=== PATIENT | male | born 1960 | race Caucasian/White ===

== ENCOUNTER 2018-03-30 13:21 | Inpatient (IN) | payer MEDICAID, MEDICARE ==
[~2018-03-30] VITALS: Ht 180.3 cm; Wt 72.6 kg
[~2018-03-30 13:21] MED LIST: ACET500T68 PO; ACET650T40 PO; ALBU8.5H IH; AMOX-559 PO; ASP325 PO; ASP81 PO; ASPI-879 PO; AUG875 PO; AZIT-1 PO; BENZ1LOZ12 PO; BRIOD OD; CAL1L PO; CALC-18 PO; CALC-515 PO; CALC-521 PO; CAR100 PO; CARB-82 PO; CARB-83 PO; CARXR100 PO; CIT20 PO; CLI150 PO; CYC10 PO; CYCL10TA29 PO; DAR100 PO; DIV500 PO; DIV500ER PO; DIVA-1 PO; DIVA500T98 PO; DOCU-194 PO; DOCU-416 PO; DONE10TA64 PO; ENA5 PO; FLUT1DIS28 IH; FOLI-68 PO; HYDR-385 PO; HYDR-4309 PO; HYDR2TAB74 PO; IBU600 PO; IBUP600T22 PO; KET10 PO; LEV100 PO; LEV125 PO; LEVO137T22 PO; LEVO75TA73 PO; LOR1 PO; LOR5 PO; LOR5/325 PO; MEC25 PO; MECL-81 PO; MELO-150 PO; MEMA10TA19 PO; MULT-1335 PO; MULT-1379 PO; MVI IV; NAPR500T75 PO; NICO1PAT45 TD; ONDA4TAB PO; OXYC-865 PO; PANT40TA65 PO; PER PO; PHEN100 PO; PHEN100C82 PO; PIRO10CA62 PO; RISE35TA PO; SER50 PO; SERT-1 PO; SERT-173 PO; SERT-182 PO; SULI200T84 PO; TAMS0.4C25 PO; TAMS0.4C70 PO; THIA100T6; TRA50 PO; ZONI100C49 PO; [UNRECOGNIZED DRUG - CODE] PO
--- NOTE | 2018-03-30 13:30 | ER Report ---
History and Physical Time Seen By MD: 13:22 HPI/ROS CHIEF COMPLAINT: seizure HISTORY OF PRESENT ILLNESS: This is a 58 year old male. He is well known to us here in the ER. 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 Reported to have had a witnessed seizure and collapsed on the street. Had a seizure and subsequent post-ictal state. He is coming around, but still having some confusion. He states he has no pain other than a headache, which is common for him after a seizure. He is not having any focal neurologic deficits oth erwise. REVIEW OF SYSTEMS: Unable to obtain at this time. Allergies: Coded Allergies: No Known Drug Allergies (Verified , 03/30/18) Home Meds Active Scripts Divalproex Sodium (DEPAKOTE) 500 Mg Tablet.dr, 1000 MG PO BID for 30 Days, #120 TAB 1 Refill Prov:OTIS ABRAMS MD 03/31/18 Phenytoin Sodium Extended (PHENYTOIN SODIUM EXTENDED) 300 Mg Capsule, 300 MG PO QDAY for 30 Days, #30 CAPSULE 1 Refill Prov:OTIS ABRAMS MD 03/31/18 Reported Medications Levothyroxine Sodium (LEVOTHYROXINE SODIUM) 0.125 Mg Tab, 0.125 MG PO QDAY, TAB 03/31/18 Risperidone (RISPERIDONE) 0.25 Mg Tablet, 0.25 MG PO BID 03/30/18 Cholecalciferol (Vitamin D3) (VITAMIN D3) 1,000 Unit Tablet, 5000 UNIT PO QDAY, TAB 03/30/18 Pantoprazole Sodium (PANTOPRAZOLE SODIUM) 40 Mg Tablet.dr, 40 MG PO QDAY, TAB.SR 03/30/18 Escitalopram Oxalate (LEXAPRO) 20 Mg Tablet, 20 MG PO QDAY, TAB 03/30/18 Discontinued Reported Medications Levothyroxine Sodium (LEVOTHYROXINE SODIUM) 100 Mcg Tablet, 125 MCG PO QDAY, TAB 03/30/18 Albuterol Sulfate 90 Mcg/Act (PROAIR HFA 90 MCG/ACT) 8.5 Gm Hfa.aer.ad, 1-2 PUFF IH 3-4XD, INHALER 07/05/16 Nicotine (NICOTINE PATCH) 1 Each Patch.dysq, 1 EACH TD QDAY 07/05/16 Sertraline Hcl (ZOLOFT) 50 Mg Tablet, 3 TAB PO QDAY, TAB 07/05/16 Calcium Carbonate (TUMS) 300 Mg Tab.chew, 500 MG PO, TAB.CHEW 07/05/16 Multivits,Th W-Fe,Other Min (THERA-M) 1 Each Tablet, 1 EACH PO 07/05/16 Levothyroxine Sodium (SYNTHROID) 137 Mcg Tablet, 137 MCG PO QDAY 07/05/16 Phenytoin Sodium Extended (DILANTIN) 100 Mg Capsule, 200 MG PO QHS, CAPSULE 07/05/16 Divalproex Sodium (DEPAKOTE) 500 Mg Tablet.dr, 500 MG PO BID, TAB 07/05/16 Levothyroxine Sodium (SYNTHROID) 137 Mcg Tablet, 137 MCG PO QDAY 07/05/16 Phenytoin Sodium Extended (DILANTIN) 100 Mg Capsule, 200 MG PO QHS, CAPSULE 07/05/16 Divalproex Sodium (DEPAKOTE) 500 Mg Tablet.dr, 500 MG PO BID, TAB 07/05/16 Reviewed Nurses Notes: Yes Hx Smoking: No Smoking Status: Former Smoker Exposure to Second Hand Smoke?: Yes Hx Substance Use Disorder: No Hx Alcohol Use: Yes Constitutional Vital Sign - Last 24 Hours 03/30/18 03/30/18 03/30/18 03/30/18 13:22 13:25 13:30 13:35 Pulse 98 110 108 98 Resp 12 12 10 12 B/P (MAP) 104/85 104/85 (91) 110/77 (88) Pulse Ox 88 88 89 86 O2 Delivery Room Air Room Air Room Air Room Air 03/30/18 03/30/18 03/30/18 03/30/18 14:00 14:05 14:10 14:30 Pulse 86 86 Resp 14 21 B/P (MAP) 109/66 (80) 119/73 (88) Pulse Ox 89 89 O2 Delivery Room Air Room Air 03/30/18 03/30/18 03/30/18 03/30/18 14:40 15:10 15:30 15:40 Pulse 95 86 81 Resp 8 12 16 B/P (MAP) 132/114 (120) Pulse Ox 91 93 94 O2 Delivery Room Air Room Air Room Air 03/30/18 03/30/18 03/30/18 03/30/18 15:45 15:54 16:00 16:00 Pulse 81 101 Resp 21 19 B/P (MAP) 137/71 (93) 109/57 (74) Pulse Ox 92 96 O2 Delivery Room Air Oxy Mask O2 Flow Rate 10 10.0 03/30/18 03/30/18 03/30/18 03/30/18 16:05 16:15 16:20 16:30 Pulse 100 98 Resp 19 20 B/P (MAP) 108/59 (75) 108/68 (81) Pulse Ox 98 99 O2 Delivery Oxy Mask Oxy Mask O2 Flow Rate 10 10 03/30/18 03/30/18 03/30/18 03/30/18 16:35 16:40 16:45 16:55 Pulse 98 93 93 Resp 16 15 9 B/P (MAP) 109/64 (79) Pulse Ox 93 91 89 O2 Delivery Room Air Room Air Room Air 03/30/18 03/30/18 03/30/18 03/30/18 17:00 17:05 17:15 17:20 Pulse 94 95 Resp 9 23 B/P (MAP) 101/62 (75) 104/66 (79) Pulse Ox 88 87 O2 Delivery Room Air Room Air 03/30/18 03/30/18 17:25 17:30 Pulse 97 Resp 15 B/P (MAP) 106/62 (77) Pulse Ox 87 O2 Delivery Room Air Physical Exam General Appearance: The patient is initially post-ictal with confusion, but improving. Able to answer some basic questions. No acute distress. Eyes: Pupils are equal, round. Reactive to light. No pallor, injection or icterus. ENT: Mucous membranes are moist. Normal oral mucosa. Posterior oropharynx is normal. Neck: Supple and no apparent tender. Respiratory: Lungs are clear to auscultation. Cardiovascular: Regular rate and rhythm. No murmurs, gallops or rubs. Normal capillary refill. No edema. Gastrointestinal: Abdomen is soft and no apparent tenderness. Nondistended. Normal active bowel sounds. Neurological: No focal neurologic deficits noted, moving all extremities. Skin: Warm and dry. No rashes. Musculoskeletal: No tenderness noted with palpation. DIFFERENTIAL DIAGNOSIS: After history and physical exam, differential diagnosis was considered for seizure, no evidence of injury, has a headache, which is common for him after a seizure, based on what he has wanted in the past, we are waiting for him to become more alert and talk about what he would like us to do. Medical Decision Making Data Points Result Diagram: 9/2/18 1315 03/30/18 1315 Laboratory Hematology Test 03/30/18 13:15 Red Blood Count 5.50 M/uL (4.00-5.60) Mean Corpuscular Volume 87.2 fL (80.0-96.0) Mean Corpuscular Hemoglobin 29.7 pg (26.0-33.0) Mean Corpuscular Hemoglobin Concent 34.0 g/dL (32.0-36.0) Red Cell Distribution Width 18.7 % (11.5-14.5) Mean Platelet Volume 9.1 fL (7.2-11.1) Neutrophils (%) (Auto) 59.5 % (39.4-72.5) Lymphocytes (%) (Auto) 28.3 % (17.6-49.6) Monocytes (%) (Auto) 10.7 % (4.1-12.4) Eosinophils (%) (Auto) 0.8 % (0.4-6.7) Basophils (%) (Auto) 0.7 % (0.3-1.4) Nucleated RBC Relative Count (auto) 0.0 /100WBC Neutrophils # (Auto) 4.7 K/uL (2.0-7.4) Lymphocytes # (Auto) 2.2 K/uL (1.3-3.6) Monocytes # (Auto) 0.8 K/uL (0.3-1.0) Eosinophils # (Auto) 0.1 K/uL (0.0-0.5) Basophils # (Auto) 0.1 K/uL (0.0-0.1) Nucleated RBC Absolute Count (auto) 0.00 K/uL Peripheral Blood Smear No Y/N Sodium Level 142 mmol/L (137-145) Potassium Level 3.7 mmol/L (3.5-5.0) Chloride Level 103 mmol/L (98-107) Carbon Dioxide Level 19 mmol/L (22-30) Blood Urea Nitrogen 11 mg/dl (9-21) Creatinine 0.60 mg/dl (0.66-1.25) Glomerular Filtration Rate Calc > 60.0 Random Glucose 121 mg/dl (75-110) Calcium Level 9.1 mg/dl (8.4-10.2) Total Bilirubin 0.5 mg/dl (0.2-1.3) Aspartate Amino Transf (AST/SGOT) 44 U/L (0-35) Alanine Aminotransferase (ALT/SGPT) 58 U/L (0-56) Alkaline Phosphatase 74 U/L (0-126) Total Protein 7.5 g/dl (6.3-8.2) Albumin 4.6 g/dl (3.5-5.0) Phenytoin (Dilantin) Level 3.9 ug/ml Phenytoin Last Dose Date . Valproic Acid (Depakene) Level < 10.0 ug/ml Chemistry Test 03/30/18 13:15 White Blood Count 7.8 k/uL (4.5-11.0) Red Blood Count 5.50 M/uL (4.00-5.60) Hemoglobin 16.3 g/dL (14.0-18.0) Hematocrit 47.9 % (42.0-52.0) Mean Corpuscular Volume 87.2 fL (80.0-96.0) Mean Corpuscular Hemoglobin 29.7 pg (26.0-33.0) Mean Corpuscular Hemoglobin Concent 34.0 g/dL (32.0-36.0) Red Cell Distribution Width 18.7 % (11.5-14.5) Platelet Count 245 K/uL (150-450) Mean Platelet Volume 9.1 fL (7.2-11.1) Neutrophils (%) (Auto) 59.5 % (39.4-72.5) Lymphocytes (%) (Auto) 28.3 % (17.6-49.6) Monocytes (%) (Auto) 10.7 % (4.1-12.4) Eosinophils (%) (Auto) 0.8 % (0.4-6.7) Basophils (%) (Auto) 0.7 % (0.3-1.4) Nucleated RBC Relative Count (auto) 0.0 /100WBC Neutrophils # (Auto) 4.7 K/uL (2.0-7.4) Lymphocytes # (Auto) 2.2 K/uL (1.3-3.6) Monocytes # (Auto) 0.8 K/uL (0.3-1.0) Eosinophils # (Auto) 0.1 K/uL (0.0-0.5) Basophils # (Auto) 0.1 K/uL (0.0-0.1) Nucleated RBC Absolute Count (auto) 0.00 K/uL Peripheral Blood Smear No Y/N Glomerular Filtration Rate Calc > 60.0 Calcium Level 9.1 mg/dl (8.4-10.2) Total Bilirubin 0.5 mg/dl (0.2-1.3) Aspartate Amino Transf (AST/SGOT) 44 U/L (0-35) Alanine Aminotransferase (ALT/SGPT) 58 U/L (0-56) Alkaline Phosphatase 74 U/L (0-126) Total Protein 7.5 g/dl (6.3-8.2) Albumin 4.6 g/dl (3.5-5.0) Phenytoin (Dilantin) Level 3.9 ug/ml Phenytoin Last Dose Date . Valproic Acid (Depakene) Level < 10.0 ug/ml Toxicology Test 03/30/18 13:15 Phenytoin (Dilantin) Level 3.9 ug/ml Phenytoin Last Dose Date . Valproic Acid (Depakene) Level < 10.0 ug/ml EKG/Imaging Imaging EXAMINATION: Head CT without intravenous contrast HISTORY: Headache, seizure. COMPARISON: 06/25/2016. TECHNIQUE: Contiguous axial images were obtained from the skull base to the vertex without intravenous contrast. Sagittal and coronal reformatted images are also submitted. One of the following dose optimization techniques was utilized in the performance of this exam: Automated exposure control; adjustment of the mA and/or kV according to the patient's size; or use of an iterative reconstruction technique. Specific details can be referenced in the facility's radiology CT exam operational policy. FINDINGS: Brain and intracranial structures: Mild cerebral volume loss with corresponding sulcal prominence. Cerebral atrophy is more prominent symmetrically within the medial occipital lobes. Ventricles are normal in size. The basal cisterns are patent. Silverio-white matter differentiation is maintained. No midline shift, acute hemorrhage, acute infarct, or mass. Vessels: Mild calcification of the carotid siphons. Calvarium / scalp: Negative. Skull base / visualized face: Mild leftward deviation of the nasal septum. Visualized sinuses / orbits: Trace mucosal thickening in the right maxillary sinus. IMPRESSION: No CT evidence of acute intracranial pathology. Mild generalized cerebral atrophy with more prominent focal atrophy in the medial occipital lobes, similar to previous examinations. Report Dictated By: Simon Roper MD at 03/30/2018 3:14 PM ED Course/Re-evaluation Clinical Indication for ER IV: IV Access ED Course The patient regained his level of alertness. He is only complaining of a headache. We talked about getting him something for pain and he is okay with d oing a CT scan of the head. We will also obtain his depakote and dilantin levels as he is unsure if he has missed any doses recently. We will go ahead and give him a dose of each now as well. Lortab 5/[address] was [address] scan done and shortly after returning, he had another seizure. Post-ictal state again. His Head CT was negative. His Phenytoin level was negative, and Depakote level was a little on the low side. He took an oral dose of Dilantin 300mg and Depakote 1000mg prior to the second seizure. Upon awakening from his post-ictal state from last seizure. Still with headache and very tired. Discussed what he would like to do. Offered hospitalization, as I know that he will sometimes refuse and want to go home, but he would like to stay in the hospital. I suspect medication noncompliance to be the problems. We are still waiting to collect a urine sample. Discussed the case with Dr. Childs who accepted the patient for admission. Decision to Disposition Date: Mar 30, 2018 Decision to Disposition Time: 17:27 Depart Departure Latest Vital Signs Vital Signs Date Time Temp Pulse Resp B/P (MAP) Pulse Ox O2 Delivery O2 Flow Rate FiO2 03/30/18 17:30 106/62 (77) 03/30/18 17:25 97 15 87 Room Air 03/30/18 16:20 10 Impression: Primary Impression: Seizure disorder Additional Impression: Seizure secondary to subtherapeutic anticonvulsant medication Condition: Condition Unchanged Disposition: Admitted from ER New Scripts Divalproex Sodium (DEPAKOTE) 500 Mg Tablet. 1000 MG PO BID for 30 Days, #120 TAB 1 Refill Prov: OTIS ABRAMS MD 03/31/18 Phenytoin Sodium Extended (PHENYTOIN SODIUM EXTENDED) 300 Mg Capsule 300 MG PO QDAY for 30 Days, #30 CAPSULE 1 Refill Prov: OTIS ABRAMS MD 03/31/18 Problem Qualifiers CEDRIC CERVANTES MD Mar 30, 2018 13:30
[2018-03-30] MEDS ORDERED: DIVALPROEX SOD DR 500 MG TAB PO ONE (14:35)
[2018-03-30] MEDS ORDERED: APAP/HYDROCODONE 325/5 TAB PO ONE (14:40)
[2018-03-30] MEDS ORDERED: RISP0.2548 PO (14:42)
[2018-03-30] MEDS ORDERED: ESCI20TA38 PO (14:42)
[2018-03-30] MEDS ORDERED: PANT40TA65 PO (14:42)
[2018-03-30] MEDS ORDERED: [UNRECOGNIZED DRUG - CODE] PO (14:42)
[2018-03-30] MEDS ORDERED: CHOL10005 PO (14:42)
[2018-03-30] MEDS ORDERED: DIVA500T98 PO (14:42)
[2018-03-30] MEDS ORDERED: LEVO-3 PO (14:42)
[2018-03-30] MEDS ORDERED: PHENYTOIN ER 100 MG CAPER PO ONE (15:15)
[2018-03-30] MEDS ORDERED: DIVALPROEX SOD ER 500 MG TABSR PO ONE (15:25)
--- NOTE | 2018-03-30 15:35 | RADIOLOGY IMAGING REPORT ---
[place] [facility] [place] Tmii Colvin : 1960 MR: [id number] V: [id number] EXAM DATE: ORDERING PHYSICIAN: CEDRIC CERVANTES TECHNOLOGIST: Location: [facility] Patient: Timi Colvin : 1960 Visit/Account:[id number] Date of Sevice: 03/30/2018 EXAMINATION: Head CT without intravenous contrast HISTORY: Headache, seizure. COMPARISON: 06/25/2016. TECHNIQUE: Contiguous axial images were obtained from the skull base to the vertex without intraven ous contrast. Sagittal and coronal reformatted images are also submitted. One of the following dose optimization techniques was utilized in the performance of this exam: Autom ated exposure control; adjustment of the mA and/or kV according to the patient's size; or use of an i terative reconstruction technique. Specific details can be referenced in the facility's radiology C T exam operational policy. FINDINGS: Brain and intracranial structures: Mild cerebral volume loss with corresponding sulcal prominence. C erebral atrophy is more prominent symmetrically within the medial occipital lobes. Ventricles are nor mal in size. The basal cisterns are patent. Silverio-white matter differentiation is maintained. No midline shift, acute hemorrhage, acute infarct, or mass. Vessels: Mild calcification of the carotid siphons. Calvarium / scalp: Negative. Skull base / visualized face: Mild leftward deviation of the nasal septum. Visualized sinuses / orbits: Trace mucosal thickening in the right maxillary sinus. IMPRESSION: No CT evidence of acute intracranial pathology. Mild generalized cerebral atrophy with more prominent focal atrophy in the medial occipital lobes, si milar to previous examinations. Report Dictated By: Simon Roper MD at 03/30/2018 3:14 PM Report E-Signed By: Simon Roper MD at 03/30/2018 3:31 PM [id number]
[2018-03-30 16:11] LABS: PLATELET COUNT, AUTOMATED 245 K/uL (150-450)
[2018-03-30 18:23] VITALS: BP 114/77
[2018-03-30] MEDS ORDERED: INFLUENZA VIRUS VAC 0.5 ML SYR IM ONLY ONE (18:55)
[2018-03-30] MEDS ORDERED: FLUSH 10 ML SYR IVP PRN (18:55)
--- NOTE | 2018-03-30 19:24 | History & Physical ---
History of Present Illness Chief Complaint Seizure History of Present Illness 58M with PMHx of seizure disorder. Presented to [facility] ER after witnessed seizure on [address] Postictal on arrival and had another approximately 1 minute seizure in ER. Lab shows low antiepileptic levels. Patient sleepy on admission, reports he has Rx at home and "may have missed one dose this am." CT scan was performed in ER and was negative for any acute process. History Problems: (1) Anxiety Status: Chronic (2) Seizure disorder Status: Chronic (3) Melanoma Status: Chronic Home Meds Reported Medications Risperidone (RISPERIDONE) 0.25 Mg Tablet, 0.25 MG PO BID 03/30/18 Cholecalciferol (Vitamin D3) (VITAMIN D3) 1,000 Unit Tablet, 5000 UNIT PO QDAY, TAB 03/30/18 Pantoprazole Sodium (PANTOPRAZOLE SODIUM) 40 Mg Tablet.dr, 40 MG PO QDAY, TAB.SR 03/30/18 Escitalopram Oxalate (LEXAPRO) 20 Mg Tablet, 20 MG PO QDAY, TAB 03/30/18 Divalproex Sodium (DEPAKOTE) 500 Mg Tablet.dr, 1000 MG PO BID, TAB 03/30/18 Phenytoin Sodium Extended (PHENYTOIN SODIUM EXTENDED) 300 Mg Capsule, 300 MG PO QDAY, CAPSULE 03/30/18 Levothyroxine Sodium (LEVOTHYROXINE SODIUM) 100 Mcg Tablet, 125 MCG PO QDAY, TAB 03/30/18 Discontinued Reported Medications Albuterol Sulfate 90 Mcg/Act (PROAIR HFA 90 MCG/ACT) 8.5 Gm Hfa.aer.ad, 1-2 PUFF IH 3-4XD, INHALER 07/05/16 Nicotine (NICOTINE PATCH) 1 Each Patch.dysq, 1 EACH TD QDAY 07/05/16 Sertraline Hcl (ZOLOFT) 50 Mg Tablet, 3 TAB PO QDAY, TAB 07/05/16 Calcium Carbonate (TUMS) 300 Mg Tab.chew, 500 MG PO, TAB.CHEW 07/05/16 Multivits, W-,Other Min (THERA-M) 1 Each Tablet, 1 EACH PO 07/05/16 Levothyroxine Sodium (SYNTHROID) 137 Mcg Tablet, 137 MCG PO QDAY 07/05/16 Phenytoin Sodium Extended (DILANTIN) 100 Mg Capsule, 200 MG PO QHS, CAPSULE 07/05/16 Divalproex Sodium (DEPAKOTE) 500 Mg Tablet.dr, 500 MG PO BID, TAB 07/05/16 Levothyroxine Sodium (SYNTHROID) 137 Mcg Tablet, 137 MCG PO QDAY 07/05/16 Phenytoin Sodium Extended (DILANTIN) 100 Mg Capsule, 200 MG PO QHS, CAPSULE 07/05/16 Divalproex Sodium (DEPAKOTE) 500 Mg Tablet.dr, 500 MG PO BID, TAB 07/05/16 Allergies: Coded Allergies: No Known Drug Allergies (Verified , 03/30/18) Patient History: FH: alcohol abuse MOTHER, Hx Smoking: No Smoking Status: Former Smoker Exposure to Second Hand Smoke?: Yes Caffeine Intake: Coffee Caffeine/Cups Per Day: 3 Hx Alcohol Use: Yes Hx Substance Use Disorder: No Social Drug Use: Never Review of Systems All Systems Reviewed/Normal: Yes, Except as Noted Constitutional: No Fever, No Chills Neurological: Confusion Eyes: No Vision Change, No Loss of Vision Exam Vital Signs Vital Signs Date Time Temp Pulse Resp B/P (MAP) Pulse Ox O2 Delivery O2 Flow Rate FiO2 03/30/18 18:23 98.5 89 16 114/77 (89) 89 Room Air 03/30/18 16:20 10 General Appearance: Alert, Awake, No Acute Distress (sleepy) Neuro: No Gross deficits Eyes: PERRLA ENT: Normal Neck: No Masses Cardiovascular: Normal Rhythm & Peripheral Pulses Respiratory: No Respiratory Distress GI: Abd Soft and Non-Tender Musculoskeletal: No Weakness/Pain Extremities: Soft and Non Tender Integumentary: Skin Intact without Lesion / Mass Medical Decision Making Data Points Result Diagram: 03/30/18 1315 03/30/18 1315 Assessment and Plan Problems: (1) Seizure secondary to subtherapeutic anticonvulsant medication Status: Acute Assessment & Plan: Patient did have witnessed seizure, short duration. Given IV phenytoin and Depakote in ER. Resume home antiepileptics, seizure precautions. (2) Seizure disorder Status: Acute Assessment & Plan: Diagnosed previously with seizure disorder. Provide educ ation on importance of regimen adherence. (3) Depression Status: Acute Assessment & Plan: He is on chronic antidepressant treatment. Resumed home regimen. Venous Thromboembolism Antithrombotics Is Pt On Any Antithrombotics?: No (early ambulation) Exam Sepsis Risk: No Definite Risk NGUYEN CLAIRE CHATTERJEE DO Mar 30, 2018 19:24
[2018-03-30 20:07] VITALS: BP 111/69
[2018-03-30] MEDS: DIVALPROEX SOD DR 500 MG TAB PO SCH (20:33)
[2018-03-30] MEDS: risperiDONE 0.25 MG TAB PO SCH (20:33)
[2018-03-30] MEDS: ACETAMINOPHEN 325 MG TAB PO PRN (20:33)
[2018-03-30 22:56] VITALS: BP 108/68
[2018-03-31 03:51] VITALS: BP 126/73
[2018-03-31] MEDS ORDERED: LEVOTHYROXINE SOD 0.1 MG TAB PO SCH (06:00)
[2018-03-31] MEDS ORDERED: CHOLECALCIFEROL 1000 UNIT TAB PO SCH (09:00)
[2018-03-31] MEDS ORDERED: PHENYTOIN ER 100 MG CAPER PO SCH (09:00)
[2018-03-31] MEDS ORDERED: PANTOPRAZOLE SOD 40 MG TABEC PO SCH (09:00)
[2018-03-31] MEDS ORDERED: ESCITALOPRAM OXALATE 10 MG TAB PO SCH (09:00)
[2018-03-31] MEDS ORDERED: DIVA500T98 PO (09:26)
[2018-03-31] MEDS ORDERED: [UNRECOGNIZED DRUG - CODE] PO (09:26)
--- NOTE | 2018-03-31 09:32 | Hospitalist Depart ---
Discharge Summary Reason for Hosp/Final Diag: (1) Seizure secondary to subtherapeutic anticonvulsant medication Status: Acute Hospital Course & Plan: Patient did have witnessed seizure of short duration. His medication levels were subtherapeutic. He was given IV phenytoin and Depakote in ER. We did resume his usual home regimen of Depakote 1000mg PO BID and Dilantin 300mh PO qHS. He did not have any recurrent seizure activity during his stay. He will follow up with his primary care provider in next 1-2 weeks. (2) Seizure disorder Status: Acute Hospital Course & Plan: Diagnosed previously with seizure disorder. We discussed the importance of regimen adherence. (3) Depression Status: Acute Hospital Course & Plan: He is on chronic antidepressant treatment with Lexapro. Departure Weight (Pounds): 160 Weight (Ounces): 0.0 Result Diagram: 03/30/18 1315 03/30/18 1315 Item Value Date Time Albumin 4.6 g/dl 03/30/18 1315 Total Protein 7.5 g/dl 03/30/18 1315 Alkaline Phosphatase 74 U/L 03/30/18 1315 Alanine Aminotransferase (ALT/SGPT) 58 U/L H 03/30/18 1315 Aspartate Amino Transf (AST/SGOT) 44 U/L H 03/30/18 1315 Total Bilirubin 0.5 mg/dl 03/30/18 1315 Calcium Level 9.1 mg/dl 03/30/18 1315 Random Glucose 121 mg/dl H 03/30/18 1315 Valproic Acid (Depakene) Level < 10.0 ug/ml 03/30/18 1315 Phenytoin (Dilantin) Level 3.9 ug/ml 03/30/18 1315 Urine Mucus Moderate /HPF H 03/31/18 0400 Urine Bacteria Negative /HPF 03/31/18 0400 Urine Transitional Epithelial Cells Few /LPF 03/31/18 0400 Urine Squamous Epithelial Cells Few /LPF 03/31/18 0400 Urine WBC 2 /HPF 03/31/18 0400 Urine RBC <1 /HPF 03/31/18 0400 Urine Leukocyte Esterase Negative 03/31/18 0400 Urine Urobilinogen Negative mg/dL 03/31/18 0400 Urine Nitrite Negative 03/31/18 0400 Urine Bilirubin Negative 03/31/18 0400 Urine Blood Negative 03/31/18399 Urine Ketones 20 mg/dL H 03/31/18 040 Urine Glucose (UA) Negative mg/dL 03/31/18399 Urine Protein 30 mg/dL 03/31/18399 Urine Specific [place] 1.025 03/31/18399 Urine pH 6.0 pH 03/31/18 040 Urine Clarity Clear 03/31/18399 Urine Color Yellow 03/31/18399 Imaging PATIENT NAME: iTmi Colvin : 1960 MR: [id number] V: [id number] EXAM DATE: ORDERING PHYSICIAN: CEDRIC CERVANTES TECHNOLOGIST: [place] [facility] [place] : 1960 Visit/Account:[id number] Date of Sevice: 03/30/2018 EXAMINATION: Head CT without intravenous contrast HISTORY: Headache, seizure. COMPARISON: 06/25/2016. TECHNIQUE: Contiguous axial images were obtained from the skull base to the vertex without intravenous contrast. Sagittal and coronal reformatted images are also submitted. One of the following dose optimization techniques was utilized in the performance of this exam: Automated exposure control; adjustment of the mA and/or kV according to the patient's size; or use of an iterative reconstruction technique. Specific details can be referenced in the facility's radiology CT exam operational policy. FINDINGS: Brain and intracranial structures: Mild cerebral volume loss with corresponding sulcal prominence. Cerebral atrophy is more prominent symmetrically within the medial occipital lobes. Ventricles are normal in size. The basal cisterns are patent. Silverio-white matter differentiation is maintained. No midline shift, acute hemorrhage, acute infarct, or mass. Vessels: Mild calcification of the carotid siphons. Calvarium / scalp: Negative. Skull base / visualized face: Mild leftward deviation of the nasal septum. Visualized sinuses / orbits: Trace mucosal thickening in the right maxillary sinus. IMPRESSION: No CT evidence of acute intracranial pathology. Mild generalized cerebral atrophy with more prominent focal atrophy in the medial occipital lobes, similar to previous examinations. Report Dictated By: Simon Roper MD at 03/30/2018 3:14 PM Report E-Signed By: Simon Roper MD at 03/30/2018 3:31 PM [id number] Condition: Improved Discharge: Home, Self Care Follow-Up Labs: Other (Recheck drug levels in 1-2 weeks.) Time Spent: > 30 min Discharge Instructions Home Meds Active Scripts Divalproex Sodium (DEPAKOTE) 500 Mg Tablet.dr, 1000 MG PO BID for 30 Days, #120 TAB 1 Refill Prov:OTIS ABRAMS MD 03/31/18 Phenytoin Sodium Extended (PHENYTOIN SODIUM EXTENDED) 300 Mg Capsule, 300 MG PO QDAY for 30 Days, #30 CAPSULE 1 Refill Prov:OTIS ABRAMS MD 03/31/18 Reported Medications Risperidone (RISPERIDONE) 0.25 Mg Tablet, 0.25 MG PO BID 03/30/18 Cholecalciferol (Vitamin D3) (VITAMIN D3) 1,000 Unit Tablet, 5000 UNIT PO QDAY, TAB 03/30/18 Pantoprazole Sodium (PANTOPRAZOLE SODIUM) 40 Mg Tablet.dr, 40 MG PO QDAY, TAB.SR 03/30/18 Escitalopram Oxalate (LEXAPRO) 20 Mg Tablet, 20 MG PO QDAY, TAB 03/30/18 Levothyroxine Sodium (LEVOTHYROXINE SODIUM) 100 Mcg Tablet, 125 MCG PO QDAY, TAB 03/30/18 Discontinued Reported Medications Albuterol Sulfate 90 Mcg/Act (PROAIR HFA 90 MCG/ACT) 8.5 Gm Hfa.aer.ad, 1-2 PUFF IH 3-4XD, INHALER 07/05/16 Nicotine (NICOTINE PATCH) 1 Each Patch.dysq, 1 EACH TD QDAY 07/05/16 Sertraline Hcl (ZOLOFT) 50 Mg Tablet, 3 TAB PO QDAY, TAB 07/05/16 Calcium Carbonate (TUMS) 300 Mg Tab.chew, 500 MG PO, TAB.CHEW 07/05/16 Multivits,Th W-Fe,Other Min (THERA-M) 1 Each Tablet, 1 EACH PO 07/05/16 Levothyroxine Sodium (SYNTHROID) 137 Mcg Tablet, 137 MCG PO QDAY 07/05/16 Phenytoin Sodium Extended (DILANTIN) 100 Mg Capsule, 200 MG PO QHS, CAPSULE 07/05/16 Divalproex Sodium (DEPAKOTE) 500 Mg Tablet.dr, 500 MG PO BID, TAB 07/05/16 Levothyroxine Sodium (SYNTHROID) 137 Mcg Tablet, 137 MCG PO QDAY 07/05/16 Phenytoin Sodium Extended (DILANTIN) 100 Mg Capsule, 200 MG PO QHS, CAPSULE 07/05/16 Divalproex Sodium (DEPAKOTE) 500 Mg Tablet.dr, 500 MG PO BID, TAB 07/05/16 Follow up Referrals: Internal Medicine @ [facility] Diet: Regular Activity: As Tolerated, No Exertion Special Instructions: No driving. Follow up with Primary Care Provider in next 1-2 weeks or sooner if any problems. Copies to: ; Venous Thromboembolism Antithrombotics Is Pt On Any Antithrombotics?: No (early ambulation) OTIS ABRAMS MD Mar 31, 2018 09:32
[2018-03-31 09:40] VITALS: BP 116/69
[2018-03-31] MEDS: risperiDONE 0.25 MG TAB PO SCH (09:44)
[2018-03-31] MEDS: DIVALPROEX SOD DR 500 MG TAB PO SCH (09:45)
[2018-03-31] MEDS ORDERED: LEV125 PO (09:51)
[2018-03-31] MEDS: ACETAMINOPHEN 325 MG TAB PO PRN (09:54)
[2018-03-31 11:41] VITALS: Ht 180.3 cm; Wt 72.6 kg
== END 2018-03-31 11:24 | disposition home or self-care (01) | DRG 101 ==
LOC: ER 13:30 → MED 17:38
PROVIDERS: ADMIT Internal Medicine; ATTEND Internal Medicine
DX: G40.909 Epilepsy, unspecified, not intractable, without status epilepticus (principal); T42.6X6A Underdosing of other antiepileptic and sedative-hypnotic drugs, initial encounter; F32.9 Major depressive disorder, single episode, unspecified; Z91.128 Patient's intentional underdosing of medication regimen for other reason; Z87.891 Personal history of nicotine dependence; Z87.820 Personal history of traumatic brain injury; Z85.850 Personal history of malignant neoplasm of thyroid; Z85.820 Personal history of malignant melanoma of skin
CPT/HCPCS: 70450; 80164; 80185; 81001; 82040; 82247; 82310; 82374; 82435; 82565; 82947; 84075; 84132; 84155; 84295; 84450; 84460; 84520; 85025; 99284

== ENCOUNTER 2018-04-02 21:07 | Inpatient (IN) | payer OTHER, MEDICARE ==
[2018-03-31 11:41] VITALS: Ht 180.3 cm; Wt 65.8 kg
[~2018-04-02] VITALS: Ht 180.3 cm; Wt 65.8 kg
[2018-04-02] MEDS ORDERED: NS(*) 0.9% 1000 ML BAG 1,000 ML IV ONE (21:16)
[2018-04-02] MEDS ORDERED: DIPHTH/TETANUS/ACEL. PERTUSSIS IM ONE (21:20)
[2018-04-02] MEDS ORDERED: fentaNYL CITR 100 MCG/2 ML AMP IVP ONE (21:20)
[2018-04-02] MEDS ORDERED: ONDANSETRON 4 MG/2 ML VIAL IVP ONE (21:20)
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
[2018-04-02] MEDS ORDERED: IOPAMIDOL 76% 75 ML INFUS BTL 75 ML ONE (21:37)
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
[2018-04-02 21:52] LABS: PLATELET COUNT, AUTOMATED 217 K/uL (150-450)
[2018-04-02 22:02] LABS: INR 1.09
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
[2018-04-03] MEDS ORDERED: ONDANSETRON 4 MG/2 ML VIAL IVP PRN (00:20)
[2018-04-03] MEDS ORDERED: NALOXONE HCL 0.4 MG/ML VIAL IVP PRN (00:20)
[2018-04-03] MEDS ORDERED: ACETAMINOPHEN 325 MG TAB PO PRN (00:20)
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
[2018-04-03 01:03] VITALS: BP 94/59
[2018-04-03] MEDS: KCL/D1/2NS 20 MEQ 1000 ML 1,000 ML IV PRN ×3 (01:38→23:22)
[2018-04-03] MEDS: APAP/HYDROCODONE 325/5 TAB PO PRN ×3 (01:49→21:31)
[2018-04-03] MEDS: BACITRACIN OINT 0.9 GM PKT TP SCH ×3 (02:06→21:31)
[2018-04-03 05:14] VITALS: BP 89/47
[2018-04-03 05:21] VITALS: BP 91/57
--- NOTE | 2018-04-03 06:57 | RADIOLOGY IMAGING REPORT ---
FACILITY: [facility] - [place] PATIENT NAME: Timi Colvin : 1960 MR: [id number] V: [id number] EXAM DATE: ORDERING PHYSICIAN: DANE DUARTE TECHNOLOGIST: Location: [facility] [place] Patient: Timi Colvin : 1960 Visit/Account:[id number] Date of Sevice: 04/03/2018 AP CHEST 04/03/2018 5:00 AM. INDICATION: follow rib fractures COMPARISON: Yesterday. FINDINGS: Unchanged vagal nerve stimulator. Thyroidectomy clips. Lungs are well-expanded. Chronic reticular opacities are unchanged. No new focal consolidation, ple ural effusion or pneumothorax. Heart size is unchanged. Rib fractures better demonstrated on CT. IMPRESSION: No significant change. Report Dictated By: Lg Nunez MD at 04/03/2018 6:52 AM Report E-Signed By: Lg Nunez MD at 04/03/2018 6:54 AM WSN:[id number]
[2018-04-03 07:47] VITALS: BP 92/75
[2018-04-03] MEDS: DOCUSATE SODIUM 100 MG CAP PO SCH ×2 (08:49→21:31)
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
[2018-04-03 19:57] VITALS: BP 96/53
[2018-04-03] MEDS: DIVALPROEX SOD DR 500 MG TAB PO SCH (21:31)
[2018-04-03] MEDS: risperiDONE 0.25 MG TAB PO SCH (21:31)
[2018-04-03] MEDS ORDERED: NICOTINE 14 MG/24 HR PATCH TD SCH (22:30)
[2018-04-03 23:33] VITALS: BP 93/58
[2018-04-04] MEDS: APAP/HYDROCODONE 325/5 TAB PO PRN ×6 (02:01→23:50)
[2018-04-04 03:30] VITALS: BP 100/57
[2018-04-04 05:04] LABS: INR 1.11; PLATELET COUNT, AUTOMATED 153 K/uL (150-450)
[2018-04-04] MEDS: LEVOTHYROXINE SOD 0.125 MG TAB PO SCH (06:08)
[2018-04-04 07:21] VITALS: BP 88/48
--- NOTE | 2018-04-04 07:50 | RADIOLOGY IMAGING REPORT ---
FACILITY: [facility] PATIENT NAME: Timi Colvin : 1960 MR: [id number] V: [id number] EXAM DATE: ORDERING PHYSICIAN: DANE DUARTE TECHNOLOGIST: Location: [facility] [place] Patient: Timi Colvin : 1960 Visit/Account:[id number] Date of Sevice: 04/04/2018 Technique: CHEST SINGLE AP HISTORY: follow rib fractures Comparison studies: Chest radiograph 04/03/2018 FINDINGS: No acute airspace consolidation. No pneumothorax. Scattered interstitial and reticular lung markings are again noted and are not significantly changed. These are most conspicuous within the le ft lung base and right midlung. The cardiomediastinal silhouette is unchanged. Rib fractures are more conspicuous on CT. IMPRESSION: 1. No acute cardiopulmonary process with no significant interval change. Report Dictated By: Angel Ruggiero DO at 04/04/2018 7:43 AM Report E-Signed By: Angel Ruggiero DO at 04/04/2018 7:46 AM WSN:[id number]
[2018-04-04] MEDS: DOCUSATE SODIUM 100 MG CAP PO SCH ×2 (09:00→19:58)
[2018-04-04] MEDS: risperiDONE 0.25 MG TAB PO SCH ×2 (09:00→19:58)
[2018-04-04] MEDS: BACITRACIN OINT 0.9 GM PKT TP SCH ×2 (09:00→19:59)
[2018-04-04] MEDS ORDERED: PATCH REMOVAL 1 EA TP SCH (09:00)
[2018-04-04] MEDS: PHENYTOIN ER 100 MG CAPER PO SCH (09:00)
[2018-04-04] MEDS: DIVALPROEX SOD DR 500 MG TAB PO SCH ×2 (09:01→19:59)
[2018-04-04] MEDS: ENOXAPARIN 40 MG/0.4ML SYR SC SCH (09:01)
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
[2018-04-04 15:39] VITALS: BP 118/43
[2018-04-04 19:32] VITALS: BP 93/50
[2018-04-04] MEDS: NICOTINE 14 MG/24 HR PATCH TD SCH (19:59)
[2018-04-04] MEDS: PATCH REMOVAL 1 EA TP SCH (19:59)
[2018-04-04 23:52] VITALS: BP 97/55
[2018-04-05 04:53] VITALS: BP 100/46
[2018-04-05] MEDS: APAP/HYDROCODONE 325/5 TAB PO PRN ×4 (04:53→18:37)
[2018-04-05 05:31] LABS: INR 1.3
--- NOTE | 2018-04-05 05:31 | RADIOLOGY IMAGING REPORT ---
FACILITY: [facility] - [place] PATIENT NAME: Timi Colvin : 1960 MR: [id number] V: [id number] EXAM DATE: ORDERING PHYSICIAN: DANE DUARTE TECHNOLOGIST: Location: [facility] Patient: Timi Colvin : 1960 Visit/Account:[id number] Date of Sevice: 04/05/2018 CHEST SINGLE AP 04/05/2018 05:00 hours. HISTORY: Follow-up rib fracture. COMPARISON: 04/04/2018 and studies dating to 07/03/2009. TECHNIQUE: Portable AP view of the chest. FINDINGS: Tubes/lines/hardware: There are external chest leads. There is a battery pack at the left lateral upp er chest and lead terminates cephalad off the x-ray. There are surgical clips at the base of the neck . Pulmonary: Lung volumes are lower. Slightly more confluent perihilar opacities, likely due to lower l glen volumes. There is left basilar opacity that has progressed. No pneumothorax. Cardiomediastinal: Cardiac and mediastinal silhouettes are within normal limits. Bones/soft tissues: No acute osseous abnormality. Rib fractures are not well seen. The visible abdome n is normal. IMPRESSION: 1. More confluent perihilar opacities, likely due to lower lung volumes and may be atelectasis. Pneum onia is felt less likely. 2. Consolidation at the left base may be atelectasis or infiltrate. 3. No pneumothorax. Report Dictated By: Agatha Yanez at 04/05/2018 5:24 AM Report E-Signed By: Agatha Yanez at 04/05/2018 5:28 AM WSN:[id number]
[2018-04-05] MEDS: LEVOTHYROXINE SOD 0.125 MG TAB PO SCH (06:07)
[2018-04-05 09:28] VITALS: BP 115/66
[2018-04-05] MEDS: risperiDONE 0.25 MG TAB PO SCH ×2 (09:31→20:17)
[2018-04-05] MEDS: PHENYTOIN ER 100 MG CAPER PO SCH (09:31)
[2018-04-05] MEDS: DIVALPROEX SOD DR 500 MG TAB PO SCH ×2 (09:31→20:18)
[2018-04-05] MEDS: ENOXAPARIN 40 MG/0.4ML SYR SC SCH (09:32)
[2018-04-05] MEDS: DOCUSATE SODIUM 100 MG CAP PO SCH ×2 (09:32→20:18)
[2018-04-05] MEDS: BACITRACIN OINT 0.9 GM PKT TP SCH ×2 (09:32→20:18)
[2018-04-05 11:35] VITALS: BP 108/65
[2018-04-05 14:42] VITALS: BP 103/59
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
[2018-04-05] MEDS: ceFAZolin 1 GM VIAL IVP SCH (18:36)
[2018-04-05] MEDS: PATCH REMOVAL 1 EA TP SCH (20:18)
[2018-04-05] MEDS: NICOTINE 14 MG/24 HR PATCH TD SCH (20:18)
[2018-04-05 20:20] VITALS: BP 92/52
[2018-04-06] VITALS (16 sets, daily range): BP systolic 101–132; BP diastolic 41–64
[2018-04-06] MEDS: APAP/HYDROCODONE 325/5 TAB PO PRN ×4 (00:15→17:33)
[2018-04-06] MEDS: ceFAZolin 1 GM VIAL IVP SCH ×4 (00:15→10:43)
[2018-04-06] MEDS: LEVOTHYROXINE SOD 0.125 MG TAB PO SCH (05:01)
[2018-04-06 06:38] LABS: INR 1.76
--- NOTE | 2018-04-06 06:39 | RADIOLOGY IMAGING REPORT ---
FACILITY: [facility] - [place] PATIENT NAME: Timi Colvin : 1960 MR: [id number] V: [id number] EXAM DATE: ORDERING PHYSICIAN: DANE DUARTE TECHNOLOGIST: Location: [facility] [place] Patient: Timi Colvin : 1960 Visit/Account:[id number] Date of Sevice: 04/06/2018 Portable chest: Indication: Injury follow-up. Technique: A single frontal film was obtained. Comparison: 04/05/2018 and 04/04/2018 Skeletal and soft tissue structures: No focal deformity is clearly identified. Heart and mediastinum: Within normal limits. Lung michael: There are chronic interstitial and/or fibrotic changes in both lungs. No new focal opaci ties are identified. Pleural spaces: No evidence of pneumothorax or effusion. Impression: No acute interval change. Report Dictated By: Len Cardoza MD at 04/06/2018 6:35 AM Report E-Signed By: Len Cardoza MD at 04/06/2018 6:37 AM WSN:[id number]
[2018-04-06 06:41] LABS: PLATELET COUNT, AUTOMATED 175 K/uL (150-450)
[2018-04-06] MEDS: ENOXAPARIN 40 MG/0.4ML SYR SC SCH (07:59)
[2018-04-06] MEDS: BACITRACIN OINT 0.9 GM PKT TP SCH ×2 (09:00→09:25)
[2018-04-06] MEDS: PHENYTOIN ER 100 MG CAPER PO SCH (09:25)
[2018-04-06] MEDS: DOCUSATE SODIUM 100 MG CAP PO SCH (09:25)
[2018-04-06] MEDS: DIVALPROEX SOD DR 500 MG TAB PO SCH ×2 (09:26→20:29)
[2018-04-06] MEDS: risperiDONE 0.25 MG TAB PO SCH ×2 (09:26→20:29)
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
[2018-04-06] MEDS ORDERED: ceFAZolin 1 GM VIAL IM ONE (10:30)
[2018-04-06] MEDS ORDERED: FAMOTIDINE 20 MG TAB PO ONE (11:10)
[2018-04-06] MEDS ORDERED: NORMOSOL R SOLN(*) 1000 ML BAG 1,000 ML IV ONE ×2 (11:10→14:45)
--- NOTE | 2018-04-06 11:19 | EKG ---
FACILITY: [facility] - [place] PATIENT NAME: ROSE LARA : [id number] MR: [id number] V: [id number] EXAM DATE: ORDERING PHYSICIAN: JUANY HASTINGS TECHNOLOGIST: FELISA Siddiqui Reason : PREOP-COPD Blood Pressure : / mmHG Vent. Rate : 110 BPM Atrial Rate : 110 BPM P-R Int : 116 ms QRS Dur : 082 ms QT Int : 302 ms P-R-T Axes : 050 013 050 degrees QTc Int : 408 ms Sinus tachycardia Nonspecific T wave abnormality Abnormal ECG When compared with ECG of 25-JUN-2016 17:10, Nonspecific T wave abnormality now evident in Inferior leads Nonspecific T wave abnormality now evident in Lateral leads Confirmed by CT BECERRA ([id number]) on 04/06/2018 8:28:25 PM Referred By: Confirmed By:CT BECERRA
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
[2018-04-06] MEDS ORDERED: ONDANSETRON 4 MG/2 ML VIAL ONE (12:27)
[2018-04-06] MEDS ORDERED: PROPOFOL EMUL(*) 10MG/ML 20 ML 20 ML ONE (12:27)
[2018-04-06] MEDS ORDERED: fentaNYL CITR 100 MCG/2 ML AMP ONE (12:27)
[2018-04-06] MEDS ORDERED: LIDOCAINE MPF 1% 5 ML VIAL ONE (12:27)
[2018-04-06] MEDS ORDERED: DEXAMETHASONE SOD 4 MG/ML VIAL ONE (12:27)
[2018-04-06] MEDS ORDERED: KETAMINE HCL 200 MG/20 ML MDV ONE (12:31)
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
[2018-04-06] MEDS ORDERED: LIDOCAINE/SOD BICARB 8.4% SYR ONE (13:18)
[2018-04-06] MEDS ORDERED: LIDO/EPI 1% MDV 1:100,000 20ML INFIL ONE (13:52)
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
[2018-04-06] MEDS ORDERED: APAP/HYDROCODONE 325/5 TAB PO PRN (15:30)
[2018-04-06] MEDS ORDERED: PROMETHAZINE 25 MG/ML 1 ML AMP IVP PRN (15:40)
[2018-04-06] MEDS: KCL/D1/2NS 20 MEQ 1000 ML 1,000 ML IV PRN (16:45)
[2018-04-06] MEDS: ceFAZolin(*) 1 GM VIAL 1 GM in NS(*) 0.9% 100 ML ADDVANT BAG 100 ML IV SCH (17:26)
[2018-04-06] MEDS ORDERED: MAGNESIUM SUL* 2 GM/50 ML IVPB 50 ML IVPB ONE (18:00)
[2018-04-06] MEDS ORDERED: SODIUM PHOSPHATE IVPB ONE (19:30)
[2018-04-06] MEDS ORDERED: SODIUM CHLORIDE 0.9% IVPB ONE (19:30)
[2018-04-06] MEDS: MORPHINE 2 MG/ML SYR IVP PRN ×2 (20:23→22:40)
[2018-04-06] MEDS: NICOTINE 14 MG/24 HR PATCH TD SCH (20:24)
[2018-04-06] MEDS: PATCH REMOVAL 1 EA TP SCH (20:29)
[2018-04-07] VITALS (7 sets, daily range): BP systolic 87–115; BP diastolic 37–66
[2018-04-07] MEDS: APAP/HYDROCODONE 325/5 TAB PO PRN ×3 (00:31→13:38)
[2018-04-07] MEDS ORDERED: ACETAMINOPHEN(*)1000 MG/100 ML 100 ML IVPB PRN (01:30)
[2018-04-07] MEDS: ceFAZolin(*) 1 GM VIAL 1 GM in NS(*) 0.9% 100 ML ADDVANT BAG 100 ML IV SCH ×3 (01:48→16:17)
[2018-04-07] MEDS: oxyCODONE HCL 5 MG CAP PO PRN ×4 (01:56→21:02)
[2018-04-07 05:01] LABS: PLATELET COUNT, AUTOMATED 163 K/uL (150-450)
[2018-04-07 05:18] LABS: INR 2.07
[2018-04-07] MEDS: LEVOTHYROXINE SOD 0.125 MG TAB PO SCH (05:32)
[2018-04-07] MEDS ORDERED: CALCIUM GLUC(*)10% 100MG/ML VL 1,000 MG in NS(*) 0.9% 100 ML BAG 100 ML IVPB ONE (05:40)
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
[2018-04-07] MEDS: DIVALPROEX SOD DR 500 MG TAB PO SCH ×2 (09:14→20:35)
[2018-04-07] MEDS: PHENYTOIN ER 100 MG CAPER PO SCH (09:14)
[2018-04-07] MEDS: risperiDONE 0.25 MG TAB PO SCH ×2 (09:14→20:35)
[2018-04-07] MEDS: ENOXAPARIN 40 MG/0.4ML SYR SC SCH (09:15)
[2018-04-07] MEDS: KCL/D1/2NS 20 MEQ 1000 ML 1,000 ML IV PRN ×2 (10:56→22:51)
[2018-04-07] MEDS: MORPHINE 2 MG/ML SYR IVP PRN ×2 (18:22→23:06)
[2018-04-07] MEDS: NICOTINE 14 MG/24 HR PATCH TD SCH (20:38)
[2018-04-07] MEDS: PATCH REMOVAL 1 EA TP SCH (20:38)
[2018-04-08] MEDS: ceFAZolin(*) 1 GM VIAL 1 GM in NS(*) 0.9% 100 ML ADDVANT BAG 100 ML IV SCH (00:41)
[2018-04-08] MEDS: APAP/HYDROCODONE 325/5 TAB PO PRN ×5 (02:09→23:18)
[2018-04-08 02:15] VITALS: BP 106/62
[2018-04-08] MEDS: oxyCODONE HCL 5 MG CAP PO PRN ×2 (03:50→19:47)
[2018-04-08 06:05] LABS: INR 1.68
[2018-04-08 06:11] LABS: PLATELET COUNT, AUTOMATED 169 K/uL (150-450)
[2018-04-08] MEDS: LEVOTHYROXINE SOD 0.125 MG TAB PO SCH (06:12)
[2018-04-08] MEDS: MORPHINE 2 MG/ML SYR IVP PRN (06:13)
[2018-04-08] MEDS ORDERED: POTASSIUM CHL 20 MEQ TABCR PO ONE (06:50)
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
[2018-04-08 07:45] VITALS: BP 103/57
[2018-04-08] MEDS: CALCIUM CARBONATE 600 MG TAB PO SCH ×2 (08:14→16:20)
[2018-04-08] MEDS: AMOX/CLAV 875 MG TAB PO SCH ×2 (08:14→16:20)
[2018-04-08] MEDS: DIVALPROEX SOD DR 500 MG TAB PO SCH ×2 (08:58→21:11)
[2018-04-08] MEDS: ENOXAPARIN 40 MG/0.4ML SYR SC SCH (08:59)
[2018-04-08] MEDS: PHENYTOIN ER 100 MG CAPER PO SCH (08:59)
[2018-04-08] MEDS: risperiDONE 0.25 MG TAB PO SCH ×2 (09:00→21:11)
[2018-04-08] MEDS ORDERED: VANCOMYCIN(*) 1 GM VIAL 1 GM, VANCOMYCIN HCL 0.750 GM VIAL 0.75 GM in NS(*) 0.9% 250 ML... IVPB ONE (09:00)
[2018-04-08 11:39] VITALS: BP 94/57
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
[2018-04-08 14:57] VITALS: BP 104/64
[2018-04-08] MEDS: VANCOMYCIN 1 GM ADDVIAL 1 GM in NS(*) 0.9% 250 ML ADDVAN BAG 250 ML IVPB SCH (16:43)
[2018-04-08 19:48] VITALS: BP 99/64
[2018-04-08] MEDS: PATCH REMOVAL 1 EA TP SCH (21:15)
[2018-04-08] MEDS: NICOTINE 14 MG/24 HR PATCH TD SCH (21:17)
[2018-04-08 23:14] VITALS: BP 107/56
[2018-04-09] MEDS: VANCOMYCIN 1 GM ADDVIAL 1 GM in NS(*) 0.9% 250 ML ADDVAN BAG 250 ML IVPB SCH ×4 (00:34→20:41)
[2018-04-09 03:51] VITALS: BP 109/66
[2018-04-09] MEDS: oxyCODONE HCL 5 MG CAP PO PRN ×3 (04:29→22:30)
[2018-04-09] MEDS: LEVOTHYROXINE SOD 0.125 MG TAB PO SCH (06:12)
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
[2018-04-09 08:21] VITALS: BP 109/63
[2018-04-09] MEDS: risperiDONE 0.25 MG TAB PO SCH ×2 (08:23→20:49)
[2018-04-09] MEDS: CALCIUM CARBONATE 600 MG TAB PO SCH ×2 (08:23→17:37)
[2018-04-09] MEDS: DIVALPROEX SOD DR 500 MG TAB PO SCH ×2 (08:23→20:49)
[2018-04-09] MEDS: PHENYTOIN ER 100 MG CAPER PO SCH (08:23)
[2018-04-09] MEDS: ENOXAPARIN 40 MG/0.4ML SYR SC SCH (08:24)
[2018-04-09] MEDS: AMOX/CLAV 875 MG TAB PO SCH ×2 (08:24→17:37)
[2018-04-09] MEDS: APAP/HYDROCODONE 325/5 TAB PO PRN ×2 (08:34→17:47)
[2018-04-09] MEDS ORDERED: LIDOCAINE MPF 1% 5 ML VIAL ONE (10:39)
[2018-04-09 12:25] VITALS: BP 111/64
--- NOTE | 2018-04-09 14:00 | Antimicrobial Stewardship ---
Antimicrobial Time Out Antimicrobial Stewardship MD Service: Other (PHYSICIAN - RUSTAM) Indications: Cellulitis (WOUND ON ARM) Antimicrobial Used VANCOMYCIN IV AND AUGMENTIN PO Start Date: Apr 09, 2018 Culture Results: Yes Eligible for PO Conversion Eligable for PO Conversion: Yes (ON PO - CULTURES SENSITIVE) Reviewed with Provider Reviewed w/ Provider on Rounds: No (CALLED FLOOR NURSE - SHE WILL CONTACT PHYSICIAN) Comments Comments PATIENT WAS ON AUGMENTIN PO AND VANCOMYCIN IV WAS ADDED TO COVER FOR POSSIBLE MRSA IN SKIN WOUND. CULTURES RETURNED GONZALEZ SENSITIVE AND PATIENT HAS REMAINED AFEBRILE. RECOMMENDATION IS TO STOP THE VANCOMYCIN AND CONTINUE AUGMENTIN PO. VANESSA NOEL Apr 09, 2018 14:00
[2018-04-09 14:42] VITALS: BP 106/61
--- NOTE | 2018-04-09 16:24 | RADIOLOGY IMAGING REPORT ---
FACILITY: [facility] [place] PATIENT NAME: Timi Colvin : 1960 MR: [id number] V: [id number] EXAM DATE: ORDERING PHYSICIAN: ROSALINE EASTON TECHNOLOGIST: Location: [facility] [place] Patient: Timi Colvin : 1960 Visit/Account:[id number] Date of Sevice: 04/08/2018 Exam type: PICC LINE INSERTION, PICC LINE PLACEMENT History: ocean transportation intermediary IV antibiotics Comparison: None. Findings: Informed consent was obtained. The patient's left arm was prepped and draped usual sterile fashion. Local anesthesia was accomplished with 1% lidocaine. Utilizing both sonographic and fluoroscopic gu idance a 39 cm long trimmed 5 Russian double lumen power PICC was inserted via the patent left basilic vein with the distal tip resting in the superior vena cava. Both lumens of power PICC were flushed with 5 mL of saline flush. The proximal portion of the PICC line was adhered patient's arm the steri le dressing. The sonographic images were saved to PACS. The fluoroscopy dose area product was 463 m icro-Silverio per meter squared. Incidentally noted are coarse interstitial changes throughout the lungs IMPRESSION: 1. Successful placement of a 39 cm long 5 Russian double lumen power PICC inserted via the patent lef t basilic vein with the distal tip resting in superior vena cava. Report Dictated By: Lindsay Merchant MD at 04/09/2018 4:18 PM Report E-Signed By: Lindsay Merchant MD at 04/09/2018 4:20 PM WSN:[email or web address]
--- NOTE | 2018-04-09 16:24 | RADIOLOGY IMAGING REPORT ---
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 Findings: Informed consent was obtained. The patient's left arm was prepped and draped usual sterile fashion. Local anesthesia was accomplished with 1% lidocaine. Utilizing both sonographic and fluoroscopic gu idance a 39 cm long trimmed 5 Turkish double lumen power PICC was inserted via the patent left basilic vein with the distal tip resting in the superior vena cava. Both lumens of power PICC were flushed with 5 mL of saline flush. The proximal portion of the PICC line was adhered patient's arm the steri le dressing. The sonographic images were saved to PACS. The fluoroscopy dose area product was 463 m icro-Silverio per meter squared. Incidentally noted are coarse interstitial changes throughout the lungs IMPRESSION: 1. Successful placement of a 39 cm long 5 Turkish double lumen power PICC inserted via the patent lef t basilic vein with the distal tip resting in superior vena cava. Report Dictated By: Lindsay Merchant MD at 04/09/2018 4:18 PM Report E-Signed By: Lindsay Merchant MD at 04/09/2018 4:20 PM WSN:[email or web address]
[2018-04-09 20:14] VITALS: BP 105/63
[2018-04-09] MEDS: NICOTINE 14 MG/24 HR PATCH TD SCH (20:48)
[2018-04-09] MEDS: PATCH REMOVAL 1 EA TP SCH (20:49)
[2018-04-09 22:23] VITALS: BP 104/58
[2018-04-10] MEDS ORDERED: VANCOMYCIN 1 GM ADDVIAL 1 GM in NS(*) 0.9% 250 ML ADDVAN BAG 250 ML IVPB SCH (02:00)
[2018-04-10 02:46] VITALS: BP 114/65
[2018-04-10] MEDS: APAP/HYDROCODONE 325/5 TAB PO PRN ×4 (02:53→23:18)
[2018-04-10] MEDS: oxyCODONE HCL 5 MG CAP PO PRN ×2 (04:56→16:29)
[2018-04-10] MEDS: PATCH REMOVAL 1 EA TP SCH (04:59)
[2018-04-10] MEDS: LEVOTHYROXINE SOD 0.125 MG TAB PO SCH (05:38)
[2018-04-10 06:11] LABS: PLATELET COUNT, AUTOMATED 142 K/uL (150-450)
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
[2018-04-10 07:27] VITALS: BP 110/73
[2018-04-10] MEDS: PHENYTOIN ER 100 MG CAPER PO SCH (08:50)
[2018-04-10] MEDS: ENOXAPARIN 40 MG/0.4ML SYR SC SCH (08:50)
[2018-04-10] MEDS: CALCIUM CARBONATE 600 MG TAB PO SCH ×2 (08:51→16:29)
[2018-04-10] MEDS: AMOX/CLAV 875 MG TAB PO SCH ×2 (08:51→16:29)
[2018-04-10] MEDS: POTASSIUM CHL 20 MEQ TABCR PO SCH (08:52)
[2018-04-10] MEDS: DIVALPROEX SOD DR 500 MG TAB PO SCH ×2 (08:52→20:35)
[2018-04-10] MEDS: risperiDONE 0.25 MG TAB PO SCH ×2 (08:52→20:35)
[2018-04-10] MEDS: VANCOMYCIN(*) 1 GM VIAL 1 GM, VANCOMYCIN (*) 0.5 GM VIAL 0.25 GM in NS(*) 0.9% 250 ML B... IVPB SCH ×2 (10:35→18:16)
[2018-04-10 11:38] VITALS: BP 114/72
[2018-04-10 14:50] VITALS: BP 111/70
[2018-04-10 20:32] VITALS: BP 108/72
[2018-04-10] MEDS: NICOTINE 14 MG/24 HR PATCH TD SCH (20:35)
[2018-04-10 23:13] VITALS: BP 117/73
[2018-04-11] MEDS: VANCOMYCIN(*) 1 GM VIAL 1 GM, VANCOMYCIN (*) 0.5 GM VIAL 0.25 GM in NS(*) 0.9% 250 ML B... IVPB SCH ×3 (02:34→18:07)
[2018-04-11 02:37] VITALS: BP 103/64
[2018-04-11] MEDS: PATCH REMOVAL 1 EA TP SCH (03:37)
[2018-04-11] MEDS: APAP/HYDROCODONE 325/5 TAB PO PRN ×3 (05:31→21:20)
[2018-04-11] MEDS: LEVOTHYROXINE SOD 0.125 MG TAB PO SCH (05:31)
[2018-04-11 05:50] LABS: PLATELET COUNT, AUTOMATED 150 K/uL (150-450)
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
[2018-04-11] MEDS: CALCIUM CARBONATE 600 MG TAB PO SCH ×2 (08:47→17:18)
[2018-04-11] MEDS: AMOX/CLAV 875 MG TAB PO SCH ×2 (08:47→17:18)
[2018-04-11] MEDS: POTASSIUM CHL 20 MEQ TABCR PO SCH (08:47)
[2018-04-11] MEDS: ENOXAPARIN 40 MG/0.4ML SYR SC SCH (08:48)
[2018-04-11] MEDS: DIVALPROEX SOD DR 500 MG TAB PO SCH ×2 (08:48→21:19)
[2018-04-11] MEDS: PHENYTOIN ER 100 MG CAPER PO SCH (08:48)
[2018-04-11] MEDS: risperiDONE 0.25 MG TAB PO SCH ×2 (08:49→21:20)
[2018-04-11 08:52] VITALS: BP 109/69
[2018-04-11] MEDS: oxyCODONE HCL 5 MG CAP PO PRN (10:06)
[2018-04-11 13:59] VITALS: BP 92/69
[2018-04-11 19:06] VITALS: BP 92/62
[2018-04-11] MEDS: NICOTINE 14 MG/24 HR PATCH TD SCH (21:19)
[2018-04-12 00:25] VITALS: BP 91/54
[2018-04-12] MEDS: VANCOMYCIN(*) 1 GM VIAL 1 GM, VANCOMYCIN (*) 0.5 GM VIAL 0.25 GM in NS(*) 0.9% 250 ML B... IVPB SCH ×3 (02:10→17:20)
[2018-04-12] MEDS ORDERED: NS(*) 0.9% 1000 ML BAG 1,000 ML ONE (02:17)
[2018-04-12] MEDS: APAP/HYDROCODONE 325/5 TAB PO PRN ×2 (05:16→19:56)
[2018-04-12] MEDS: LEVOTHYROXINE SOD 0.125 MG TAB PO SCH (05:16)
[2018-04-12 06:08] LABS: PLATELET COUNT, AUTOMATED 222 K/uL (150-450)
[2018-04-12 08:10] VITALS: BP 100/69
[2018-04-12] MEDS: AMOX/CLAV 875 MG TAB PO SCH ×2 (08:11→16:29)
[2018-04-12] MEDS: CALCIUM CARBONATE 600 MG TAB PO SCH ×2 (08:11→16:29)
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
[2018-04-12] MEDS: DIVALPROEX SOD DR 500 MG TAB PO SCH ×2 (09:45→20:59)
[2018-04-12] MEDS: PHENYTOIN ER 100 MG CAPER PO SCH (09:46)
[2018-04-12] MEDS: risperiDONE 0.25 MG TAB PO SCH ×2 (09:46→20:58)
[2018-04-12] MEDS: ENOXAPARIN 40 MG/0.4ML SYR SC SCH (09:46)
[2018-04-12] MEDS: POTASSIUM CHL 20 MEQ TABCR PO SCH (09:46)
[2018-04-12] MEDS: oxyCODONE HCL 5 MG CAP PO PRN (09:55)
[2018-04-12 11:42] VITALS: BP 94/73
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
[2018-04-12 14:37] VITALS: BP 114/69
[2018-04-12 19:16] VITALS: BP 106/67
[2018-04-12] MEDS: NICOTINE 14 MG/24 HR PATCH TD SCH (20:59)
[2018-04-12] MEDS: PATCH REMOVAL 1 EA TP SCH (20:59)
[2018-04-12 22:31] VITALS: BP 100/60
[2018-04-13] VITALS (7 sets, daily range): BP systolic 91–173; BP diastolic 56–74
[2018-04-13] MEDS: oxyCODONE HCL 5 MG CAP PO PRN ×3 (01:22→15:23)
[2018-04-13] MEDS: VANCOMYCIN(*) 1 GM VIAL 1 GM, VANCOMYCIN (*) 0.5 GM VIAL 0.25 GM in NS(*) 0.9% 250 ML B... IVPB SCH ×3 (01:26→17:19)
[2018-04-13] MEDS: APAP/HYDROCODONE 325/5 TAB PO PRN ×3 (05:13→21:26)
[2018-04-13] MEDS: LEVOTHYROXINE SOD 0.125 MG TAB PO SCH (05:15)
[2018-04-13 06:22] LABS: PLATELET COUNT, AUTOMATED 140 K/uL (150-450)
[2018-04-13] MEDS: CALCIUM CARBONATE 600 MG TAB PO SCH ×2 (07:28→16:17)
[2018-04-13] MEDS: AMOX/CLAV 875 MG TAB PO SCH ×2 (07:28→16:17)
[2018-04-13] MEDS: risperiDONE 0.25 MG TAB PO SCH ×2 (08:18→21:28)
[2018-04-13] MEDS: DIVALPROEX SOD DR 500 MG TAB PO SCH ×2 (08:18→21:29)
[2018-04-13] MEDS: POTASSIUM CHL 20 MEQ TABCR PO SCH (08:18)
[2018-04-13] MEDS: PHENYTOIN ER 100 MG CAPER PO SCH (08:18)
[2018-04-13] MEDS: ENOXAPARIN 40 MG/0.4ML SYR SC SCH (08:19)
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
[2018-04-13] MEDS: PATCH REMOVAL 1 EA TP SCH (21:00)
[2018-04-13] MEDS: NICOTINE 14 MG/24 HR PATCH TD SCH (21:27)
[2018-04-14] MEDS: VANCOMYCIN(*) 1 GM VIAL 1 GM, VANCOMYCIN (*) 0.5 GM VIAL 0.25 GM in NS(*) 0.9% 250 ML B... IVPB SCH ×3 (01:27→17:48)
[2018-04-14] MEDS: APAP/HYDROCODONE 325/5 TAB PO PRN ×3 (01:33→22:53)
[2018-04-14 02:38] VITALS: BP 87/52
[2018-04-14] MEDS: LEVOTHYROXINE SOD 0.125 MG TAB PO SCH (05:16)
[2018-04-14 05:50] LABS: PLATELET COUNT, AUTOMATED 286 K/uL (150-450)
[2018-04-14 08:24] VITALS: BP 109/81
[2018-04-14] MEDS: CALCIUM CARBONATE 600 MG TAB PO SCH ×2 (08:26→16:39)
[2018-04-14] MEDS: POTASSIUM CHL 20 MEQ TABCR PO SCH (08:26)
[2018-04-14] MEDS: AMOX/CLAV 875 MG TAB PO SCH ×2 (08:26→16:39)
[2018-04-14] MEDS: risperiDONE 0.25 MG TAB PO SCH ×2 (08:26→21:12)
[2018-04-14] MEDS: PHENYTOIN ER 100 MG CAPER PO SCH (08:26)
[2018-04-14] MEDS: DIVALPROEX SOD DR 500 MG TAB PO SCH ×2 (08:27→21:13)
[2018-04-14] MEDS: ENOXAPARIN 40 MG/0.4ML SYR SC SCH (08:27)
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
[2018-04-14] MEDS ORDERED: IOPAMIDOL 76% 75 ML INFUS BTL 75 ML ONE (10:09)
--- NOTE | 2018-04-14 10:21 | RADIOLOGY IMAGING REPORT ---
FACILITY: [facility] PATIENT NAME: Timi Colvin : 1960 MR: [id number] V: [id number] EXAM DATE: ORDERING PHYSICIAN: ROSALINE EASTON TECHNOLOGIST: Location: Patient: Timi Colvin : 1960 Visit/Account:[id number] Date of Sevice: 04/14/2018 Chest single view: HISTORY: Rib fracture, leukocytosis. COMPARISON: 04/06/2018 as well as multiple other priors. FINDINGS: Portable chest 0900 hours: Cardiomediastinal silhouette is within normal limits. Chronic i nterstitial opacities are present. There is increasing bibasilar opacity when compared to prior stud ies, atelectasis versus developing infiltrate. There is no definite pleural effusion or pneumothorax . PICC line tip is near the right atrial SVC junction. Electronic stimulator leads are seen projecting over the left hemithorax. Patient is known rib fractures which are not well seen on this image. IMPRESSION: Increasing bibasilar opacity superimposed on chronic interstitial changes. This may repr esent developing atelectasis and/or infiltrate. Radiographically, lungs are not as well aerated comp ared to prior studies. Report Dictated By: Norma Johns MD at 04/14/2018 10:14 AM Report E-Signed By: Norma Johns MD at 04/14/2018 10:17 AM WSN:[id number]
--- NOTE | 2018-04-14 12:09 | RADIOLOGY IMAGING REPORT ---
FACILITY: [facility] PATIENT NAME: Timi Colvin : 1960 MR: [id number] V: [id number] EXAM DATE: ORDERING PHYSICIAN: ROSALINE EASTON TECHNOLOGIST: Location: [facility] Patient: Timi Colvin : 1960 Visit/Account:[id number] Date of Sevice: 04/14/2018 ELBOW RIGHT W W/O CONTRAST COMPARISON: None. HISTORY: Cellulitis, I/D of elbow, fullness in mid forearm, WBC. TECHNIQUE: Pre and postcontrast axial CT of the right elbow with coronal and sagittal reformats. One of the following dose optimization techniques was utilized in the performance of this exam: auto mated exposure control; adjustment of the mA and/or kV according to patient size; or use of iterative reconstruction technique. Specific details can be referenced in the facility's radiology CT exam op erational policy. CONTRAST: 75 mL Isovue-370 intravenously. FINDINGS: BONES : No acute fracture or malalignment. Spur along the articular surface of the capitellum causin g narrowing of the radiocapitellar side of the joint. Mild diffuse narrowing in the ulnar side of the joint. Enthesophyte at the expected triceps insertion. No raven destructive changes or evidence of o steomyelitis. FLUID: No appreciable effusion or drainable fluid collection. SOFT TISSUES: Mild generalized subcutaneous fat edema. No focal muscle atrophy or appreciable muscl e edema. OTHER: There is mild motion artifact present on the postcontrast scan. IMPRESSION: 1. Right elbow soft tissue edema consistent with cellulitis. 2. No evidence of soft tissue abscess, effusion or osteomyelitis. 3. Mild osteoarthritis. Report Dictated By: Rajan Vu at 04/14/2018 12:01 PM Report E-Signed By: Rajan Vu at 04/14/2018 12:05 PM WSN:[id number]
[2018-04-14 16:37] VITALS: BP 92/75
[2018-04-14 19:29] VITALS: BP 91/60
[2018-04-14] MEDS: PATCH REMOVAL 1 EA TP SCH (21:00)
[2018-04-14] MEDS: NICOTINE 14 MG/24 HR PATCH TD SCH (21:13)
[2018-04-15 00:13] VITALS: BP 95/55
[2018-04-15] MEDS: oxyCODONE HCL 5 MG CAP PO PRN (01:17)
[2018-04-15] MEDS: VANCOMYCIN(*) 1 GM VIAL 1 GM, VANCOMYCIN (*) 0.5 GM VIAL 0.25 GM in NS(*) 0.9% 250 ML B... IVPB SCH (01:17)
[2018-04-15] MEDS: LEVOTHYROXINE SOD 0.125 MG TAB PO SCH (05:31)
[2018-04-15 06:01] LABS: PLATELET COUNT, AUTOMATED 350 K/uL (150-450)
[2018-04-15] MEDS ORDERED: AMOX1TAB9 PO (07:14)
[2018-04-15] MEDS ORDERED: LOR5/325 PO (07:14)
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
[2018-04-15 07:39] VITALS: BP 89/58
[2018-04-15] MEDS: AMOX/CLAV 875 MG TAB PO SCH (07:51)
[2018-04-15] MEDS: CALCIUM CARBONATE 600 MG TAB PO SCH (07:51)
[2018-04-15] MEDS: DIVALPROEX SOD DR 500 MG TAB PO SCH (08:36)
[2018-04-15] MEDS: risperiDONE 0.25 MG TAB PO SCH (08:36)
[2018-04-15] MEDS: ENOXAPARIN 40 MG/0.4ML SYR SC SCH (08:37)
[2018-04-15] MEDS: POTASSIUM CHL 20 MEQ TABCR PO SCH (08:37)
[2018-04-15] MEDS: PHENYTOIN ER 100 MG CAPER PO SCH (08:37)
[2018-04-16] MEDS ORDERED: LOR5/325 PO (13:56)
[2018-04-30] MEDS ORDERED: [UNRECOGNIZED DRUG - CODE] PO (16:04)
[2018-04-30] MEDS ORDERED: DIVA500T98 PO (16:04)
[2018-04-30] MEDS ORDERED: LEV125 PO (16:04)
[2018-04-30] MEDS ORDERED: RISP0.2548 PO (16:04)
[2018-04-30] MEDS ORDERED: ESCI10TA8 PO (16:04)
== END 2018-04-15 11:04 | disposition home or self-care (01) | DRG 184 ==
LOC: ER 21:24 → EDBEDREQSVC 04-03 00:34 → INTOOBSV 04-03 00:37 → OBSVTOIN 04-03 00:37 → MED 04-03 00:37 → OBSVTOIN 04-07
PROVIDERS: ADMIT Surgery; ATTEND Surgery
PROC: 0HBDXZZ Excision of Right Lower Arm Skin, External Approach (ICD-10-PCS; 2018-04-06)
PROC: 02HV33Z Insertion of Infusion Device into Superior Vena Cava, Percutaneous Approach (ICD-10-PCS; principal; 2018-04-06 13:46)
DX: S22.43XA Multiple fractures of ribs, bilateral, initial encounter for closed fracture (principal); L03.113 Cellulitis of right upper limb; S27.329A Contusion of lung, unspecified, initial encounter; V03.10XA Pedestrian on foot injured in collision with car, pick-up truck or van in traffic accident, initial encounter; G40.909 Epilepsy, unspecified, not intractable, without status epilepticus; Z91.14 Patient's other noncompliance with medication regimen; S50.311A Abrasion of right elbow, initial encounter
CPT/HCPCS: 36415; 36569; 70450; 71045; 71260; 72125; 72170; 72193; 74160; 74177; 76937; 80164; 80185; 80202; 80320; 81001; 82040; 82150; 82247; 82310; 82374; 82435; 82565; 82947; 83605; 83690; 83735; 84075; 84100; 84132; 84155; 84295; 84450; 84460; 84520; 85025; 85610; 85730; 87040; 87070; 87073; 87077; 87088; 87186; 87205; 87252; 87324; 87449; 90715; 93005; 94010; 94667; 94668; 97161; 97165; 99291; 99292; C1751; C9399; G0378; J0131; J0610; J0690; J1100; J1650; J2001; J2270; J2405; J2550; J2704; J3010; J3370; J3475; J3480; J3490; J7030; J7040; J7050; L0172; Q9967

== ENCOUNTER → 2018-04-02 | Outpatient (CLI) | payer OTHER, MEDICARE ==
[2018-03-31 11:41] VITALS: BMI 22.3
[~2018-04-02] MED LIST changes: +CHOL10005 PO; -DOCU-194 PO; +DOCU100C56 PO; +ESCI20TA38 PO; +LEVO-3 PO; +RISP0.2548 PO; +[UNRECOGNIZED DRUG - CODE] PO
== END ==
LOC: AMB 20:57
PROVIDERS: ATTEND Nurse Practitioner
DX: R07.81 Pleurodynia (principal); M54.6 Pain in thoracic spine; V09.9XXA Pedestrian injured in unspecified transport accident, initial encounter
CPT/HCPCS: A0425; A0427

== ENCOUNTER → 2018-04-21 | Outpatient (REF) | payer MEDICARE, MEDICAID ==
[2018-03-31 11:41] VITALS: BMI 22.3
[~2018-04-21] MED LIST changes: +AMOX1TAB9 PO
[2018-04-21 07:55] LABS: PLATELET COUNT, AUTOMATED 713 K/uL (150-450)
== END ==
LOC: ZZLCC 07:32
PROVIDERS: ATTEND Nurse Practitioner Family
DX: Z12.5 Encounter for screening for malignant neoplasm of prostate (principal); L03.90 Cellulitis, unspecified; Z79.899 Other long term (current) drug therapy; E03.9 Hypothyroidism, unspecified
CPT/HCPCS: 80164; 80185; 84443; 85025; G0103; 82040; 82247; 82310; 82374; 82435; 82565; 82947; 84075; 84132; 84153; 84155; 84295; 84450; 84460; 84520

== ENCOUNTER 2018-05-03 03:34 | Emergency (ER) | payer MEDICARE, MEDICAID ==
[2018-03-31 11:41] VITALS: Wt 65.8 kg
[~2018-05-03 03:34] MED LIST changes: -CEPH500C24 PO; +HYDR-4309 PO; -HYDR-653 PO
--- NOTE | 2018-05-03 03:34 | ER Report ---
History and Physical Time Seen By MD: 03:35 HPI/ROS CHIEF COMPLAINT: seizure and fall HISTORY OF PRESENT ILLNESS: This is a 58 year old male. He has a history of seizures. He had a seizure tonight, fell out of bed. He has pain in his back, shoulder, and headache. He does not know what happened. He has an abrasion on his back. He is still groggy from the seizure. He does not think that he has missed any medication. No vision changes at this time. No recent illnesses. He has some rib fractures on the left chest from recent injury and these still hurt. He thinks that his chest is hurting more now. Mild shortness of breath. Did not lose control of bowel or bladder function. Did not bite his tongue. Allergies: Coded Allergies: No Known Drug Allergies (Verified , 05/03/18) Home Meds Active Scripts Divalproex Sodium (DEPAKOTE) 500 Mg Tablet.dr, 1000 MG PO TID, #180 TAB 0 Refills Prov:CEDRIC CERVANTES MD 05/03/18 Cephalexin Monohydrate (CEPHALEXIN) 500 Mg Cap, 500 MG PO Q6H, #20 CAP 0 Refills Prov:CEDRIC CERVANTES MD 05/03/18 Escitalopram Oxalate (ESCITALOPRAM OXALATE) 10 Mg Tablet, 20 MG PO QDAY, #30 TAB patient needs to schedule follow up appt with primary physician Prov:MAGDALENE GROVE APRN 04/30/18 Levothyroxine Sodium (LEVOTHYROXINE SODIUM) 0.125 Mg Tab, 0.125 MG PO QDAY, #30 TAB Patient needs to schedule follow up appt with primary physician Prov:MAGDALENE GROVE APRN 04/30/18 Divalproex Sodium (DEPAKOTE) 500 Mg Tablet.dr, 1000 MG PO BID for 30 Days, #60 TAB 0 Refills Patient needs to schedule follow up with primary physician Prov:MAGDALENE GROVE APRN 04/30/18 Phenytoin Sodium Extended (PHENYTOIN SODIUM EXTENDED) 300 Mg Capsule, 300 MG PO QDAY for 30 Days, #30 CAPSULE patient needs to follow up with primary physician Prov:MAGDALENE GROVE APRN 04/30/18 Risperidone (RISPERIDONE) 0.25 Mg Tablet, 0.25 MG PO BID, #60 TAB patient needs to schedule follow up appt with primary physician Prov:MAGDALENE GROVE APRN-Mykel 04/30/18 Hydrocodone Bit/Acetaminophen (HYDROCODON-ACETAMINOPHEN 5-325) 1 Each Tablet, 1- 2 TAB PO Q6H PRN for MODERATE PAIN, #30 TAB 0 Refills Prov:MAGDALENE GROVE APRN-Mykel 04/16/18 Discontinued Scripts Amoxicillin/Potassium Clav (AMOX TR-K CLV 875-125 MG TAB) 1 Each Tablet, 1 TAB PO BIDBS, #14 TAB 0 Refills Prov:ROSALINE EASTON MD 04/15/18 Reviewed Nurses Notes: Yes Hx Smoking: No Smoking Status: Former Smoker Exposure to Second Hand Smoke?: Yes Hx Substance Use Disorder: No Hx Alcohol Use: Yes Constitutional Vital Sign - Last 24 Hours 05/03/18 05/03/18 05/03/18 03:36 05:47 06:30 Temp 99.2 Pulse 115 99 Resp 16 B/P (MAP) 120/80 125/76 (92) 125/78 (94) Pulse Ox 92 94 O2 Delivery Room Air Physical Exam General Appearance: The patient is alert. No acute distress. Eyes: Pupils are equal, round. Chronic strabismus. Reactive to light. No pallor, injection or icterus. ENT: Mucous membranes are moist. Normal oral mucosa. Posterior oropharynx is normal. Neck: Supple. No lymphadenopathy. Respiratory: Breathing easily and unlabored. Lungs are clear to auscultation but he has pain with deep breaths. Cardiovascular: Regular rate and rhythm. No murmurs, gallops or rubs. No edema. Gastrointestinal: Abdomen is soft and non tender. Nondistended. Normal active bowel sounds. Neurological: Alert and oriented x3. No focal neurologic deficits in the extremities. Skin: Warm and dry. Abrasion of mid back. Musculoskeletal: shoulders with pain bilaterally. Pain with palpation of chest wall on the left. Tender cervical and thoracic spine. C-collar in place from EMS. DIFFERENTIAL DIAGNOSIS: After history and physical exam, differential diagnosis was considered for seizure with fall, uncertain mechanism, with pain in back and chest mainly, but also neck and shoulders. Mild headache. Will obtain imaging. Will load with Valproate as well. Medical Decision Making Data Points Result Diagram: 05/03/18 0403 05/03/18 0403 Laboratory Hematology Test 05/03/18 04:03 Red Blood Count 4.23 M/uL (4.00-5.60) Mean Corpuscular Volume 92.3 fL (80.0-96.0) Mean Corpuscular Hemoglobin 31.3 pg (26.0-33.0) Mean Corpuscular Hemoglobin Concent 33.9 g/dL (32.0-36.0) Red Cell Distribution Width 20.6 % (11.5-14.5) Mean Platelet Volume 7.7 fL (7.2-11.1) Neutrophils (%) (Auto) 65.6 % (39.4-72.5) Lymphocytes (%) (Auto) 21.1 % (17.6-49.6) Monocytes (%) (Auto) 11.9 % (4.1-12.4) Eosinophils (%) (Auto) 0.2 % (0.4-6.7) Basophils (%) (Auto) 1.2 % (0.3-1.4) Nucleated RBC Relative Count (auto) 0.0 /100WBC Neutrophils # (Auto) 4.3 K/uL (2.0-7.4) Lymphocytes # (Auto) 1.4 K/uL (1.3-3.6) Monocytes # (Auto) 0.8 K/uL (0.3-1.0) Eosinophils # (Auto) 0.0 K/uL (0.0-0.5) Basophils # (Auto) 0.1 K/uL (0.0-0.1) Nucleated RBC Absolute Count (auto) 0.00 K/uL Sodium Level 135 mmol/L (137-145) Potassium Level 3.7 mmol/L (3.5-5.0) Chloride Level 100 mmol/L (98-107) Carbon Dioxide Level 17 mmol/L (22-30) Blood Urea Nitrogen 9 mg/dl (9-21) Creatinine 0.60 mg/dl (0.66-1.25) Glomerular Filtration Rate Calc > 60.0 Random Glucose 81 mg/dl (75-110) Calcium Level 8.4 mg/dl (8.4-10.2) Total Bilirubin 0.5 mg/dl (0.2-1.3) Aspartate Amino Transf (AST/SGOT) 39 U/L (0-35) Alanine Aminotransferase (ALT/SGPT) 48 U/L (0-56) Alkaline Phosphatase 139 U/L (0-126) Total Protein 7.6 g/dl (6.3-8.2) Albumin 4.0 g/dl (3.5-5.0) Valproic Acid (Depakene) Level 34.5 ug/ml Chemistry Test 05/03/18 04:03 White Blood Count 6.5 k/uL (4.5-11.0) Red Blood Count 4.23 M/uL (4.00-5.60) Hemoglobin 13.2 g/dL (14.0-18.0) Hematocrit 39.1 % (42.0-52.0) Mean Corpuscular Volume 92.3 fL (80.0-96.0) Mean Corpuscular Hemoglobin 31.3 pg (26.0-33.0) Mean Corpuscular Hemoglobin Concent 33.9 g/dL (32.0-36.0) Red Cell Distribution Width 20.6 % (11.5-14.5) Platelet Count 174 K/uL (150-450) Mean Platelet Volume 7.7 fL (7.2-11.1) Neutrophils (%) (Auto) 65.6 % (39.4-72.5) Lymphocytes (%) (Auto) 21.1 % (17.6-49.6) Monocytes (%) (Auto) 11.9 % (4.1-12.4) Eosinophils (%) (Auto) 0.2 % (0.4-6.7) Basophils (%) (Auto) 1.2 % (0.3-1.4) Nucleated RBC Relative Count (auto) 0.0 /100WBC Neutrophils # (Auto) 4.3 K/uL (2.0-7.4) Lymphocytes # (Auto) 1.4 K/uL (1.3-3.6) Monocytes # (Auto) 0.8 K/uL (0.3-1.0) Eosinophils # (Auto) 0.0 K/uL (0.0-0.5) Basophils # (Auto) 0.1 K/uL (0.0-0.1) Nucleated RBC Absolute Count (auto) 0.00 K/uL Glomerular Filtration Rate Calc > 60.0 Calcium Level 8.4 mg/dl (8.4-10.2) Total Bilirubin 0.5 mg/dl (0.2-1.3) Aspartate Amino Transf (AST/SGOT) 39 U/L (0-35) Alanine Aminotransferase (ALT/SGPT) 48 U/L (0-56) Alkaline Phosphatase 139 U/L (0-126) Total Protein 7.6 g/dl (6.3-8.2) Albumin 4.0 g/dl (3.5-5.0) Valproic Acid (Depakene) Level 34.5 ug/ml Toxicology Test 05/03/18 04:03 Valproic Acid (Depakene) Level 34.5 ug/ml ED Course/Re-evaluation Clinical Indication for ER IV: Hydration, IV Access ED Course Shortly after initial evaluation, the patient had another seizure with subsequent post-ictal state. He had received Fentanyl 50mcg IV just prior to this. CT scans Decision to Disposition Date: May 03, 2018 Decision to Disposition Time: 06:34 Depart Departure Latest Vital Signs Vital Signs Date Time Temp Pulse Resp B/P (MAP) Pulse Ox O2 Delivery O2 Flow Rate FiO2 05/03/18 06:30 99 125/78 (94) 94 05/03/18 03:36 99.2 16 Room Air Impression: Primary Impression: Seizure disorder Additional Impressions: Seizure secondary to subtherapeutic anticonvulsant medication Abrasion of upper back excluding scapular region Cellulitis of right elbow Condition: Improved Disposition: HOME OR SELF-CARE New Scripts Divalproex Sodium (DEPAKOTE) 500 Mg Tablet.dr 1000 MG PO TID, #180 TAB 0 Refills Prov: CEDRIC CERVANTES MD 05/03/18 Cephalexin Monohydrate (CEPHALEXIN) 500 Mg Cap 500 MG PO Q6H, #20 CAP 0 Refills Prov: CEDRIC CERVANTES MD 05/03/18 Patient Instructions: Recurrent Seizures in Adults (ED) Additional Instructions: Increase Depakote to 500mg tablets, 2 tablets 3 times a day. Keep taking your Dilantin 300mg once a day. Start Cephalexin 500mg four times a day. This is an antibiotic for the infection of the skin around your elbow would. Wash the elbow wound twice a day with soap and water and apply a new bandage. Problem Qualifiers Additional Impressions: Abrasion of upper back excluding scapular region Encounter type: initial encounter Laterality: unspecified laterality Qualified Codes: S20.419A - Abrasion of unspecified back wall of thorax, initial encounter CEDRIC CERVANTES MD May 03, 2018 03:34
[2018-05-03] MEDS ORDERED: fentaNYL CITR 100 MCG/2 ML AMP IVP ONE (03:50)
[2018-05-03] MEDS ORDERED: IOPAMIDOL 76% 75 ML INFUS BTL 75 ML ONE (03:56)
[2018-05-03 04:12] LABS: PLATELET COUNT, AUTOMATED 174 K/uL (150-450)
[2018-05-03] MEDS ORDERED: VALPROATE SOD 100 MG/ML VIAL 1,000 MG in NS(*) 0.9% 100 ML BAG 100 ML IVPB ONE (04:25)
--- NOTE | 2018-05-03 06:28 | RADIOLOGY IMAGING REPORT ---
FACILITY: [facility] [place] PATIENT NAME: Timi Colvin : 1960 MR: [id number] V: [id number] EXAM DATE: ORDERING PHYSICIAN: CEDRIC CERVANTES TECHNOLOGIST: Location: [facility] Patient: Timi Colvin : 1960 Visit/Account:[id number] Date of Sevice: 05/03/2018 CT Head without contrast and CT Cervical spine: Indication: seizure, fall Comparison: None available Technique: CT head: Axial CT images were obtained through the brain from the skull base to the verte x without administration of IV contrast. Reformatted coronal and sagittal images were also obtained. Technique: CT cervical spine: Axial CT imaging of the cervical spine was performed. 2-D sagittal and coronal CT reformats were also obtained. One of the following dose optimization techniques was utilized in the performance of this exam: Autom ated exposure control; adjustment of the mA and/or kV according to the patient's size; or use of an i terative reconstruction technique. Specific details can be referenced in the facility's radiology C T exam operational policy. FINDINGS: CT head: No evidence of mass, mass effect, or midline shift. No acute intracranial hemorrhage or acute territorial infarction. Mild global volume loss. No acute skull fracture. Globes and orbits are grossly normal. The visualized paranasal sinuses and mastoid air spaces are clear. Redemonstration of an ovoid heterogeneous mix of soft tissue density and gas likely within the oral c avity adjacent to the left lateral aspect of the mandible measuring 2.4 x 1.3 cm on image 3 series 2, similar to prior. CT cervical spine: No acute abnormality of cervical vertebral body height and alignment. No cervical spine fracture. The re is no prevertebral soft tissue thickening. Moderate multilevel spondylosis with associated spinal canal and neural foraminal narrowing. Thyroidectomy. Vagal nerve stimulator in place on the left. Remaining visualized cervical soft tissu es are unremarkable. The airway is patent. Please see same-day chest CT for additional findings. IMPRESSION: 1. No acute intracranial abnormality or significant change. 2. No acute osseous abnormality of the cervical spine. 3. Redemonstration of nonspecific ovoid soft tissue and gas density lesion suspected to be within th e oral cavity adjacent to the left lateral aspect of the mandible. This again could represent retain ed food products or potentially intentionally placed foreign material such as chewing tobacco or gauz e. However underlying lesion is not excluded, particularly given its similar in appearance to the pr ior examination. Correlate with exam. Report Dictated By: Lg Nunez MD at 05/03/2018 6:05 AM Report E-Signed By: Lg Nunez MD at 05/03/2018 6:24 AM WSN:[id number]
--- NOTE | 2018-05-03 06:28 | RADIOLOGY IMAGING REPORT ---
[place] [facility] [place] Timi Colvin : 1960 MR: [id number] V: [id number] EXAM DATE: ORDERING PHYSICIAN: CEDRIC CERVANTES TECHNOLOGIST: Location: [facility] [place] Patient: Timi Colvin : 1960 Visit/Account:[id number] Date of Sevice: 05/03/2018 CT Head without contrast and CT Cervical spine: Indication: seizure, fall Comparison: None available Technique: CT head: Axial CT images were obtained through the brain from the skull base to the verte x without administration of IV contrast. Reformatted coronal and sagittal images were also obtained. Technique: CT cervical spine: Axial CT imaging of the cervical spine was performed. 2-D sagittal and coronal CT reformats were also obtained. One of the following dose optimization techniques was utilized in the performance of this exam: Autom ated exposure control; adjustment of the mA and/or kV according to the patient's size; or use of an i terative reconstruction technique. Specific details can be referenced in the facility's radiology C T exam operational policy. FINDINGS: CT head: No evidence of mass, mass effect, or midline shift. No acute intracranial hemorrhage or acute territorial infarction. Mild global volume loss. No acute skull fracture. Globes and orbits are grossly normal. The visualized paranasal sinuses and mastoid air spaces are clear. Redemonstration of an ovoid heterogeneous mix of soft tissue density and gas likely within the oral c avity adjacent to the left lateral aspect of the mandible measuring 2.4 x 1.3 cm on image 3 series 2, similar to prior. CT cervical spine: No acute abnormality of cervical vertebral body height and alignment. No cervical spine fracture. The re is no prevertebral soft tissue thickening. Moderate multilevel spondylosis with associated spinal canal and neural foraminal narrowing. Thyroidectomy. Vagal nerve stimulator in place on the left. Remaining visualized cervical soft tissu es are unremarkable. The airway is patent. Please see same-day chest CT for additional findings. IMPRESSION: 1. No acute intracranial abnormality or significant change. 2. No acute osseous abnormality of the cervical spine. 3. Redemonstration of nonspecific ovoid soft tissue and gas density lesion suspected to be within th e oral cavity adjacent to the left lateral aspect of the mandible. This again could represent retain ed food products or potentially intentionally placed foreign material such as chewing tobacco or gauz e. However underlying lesion is not excluded, particularly given its similar in appearance to the pr ior examination. Correlate with exam. Report Dictated By: Lg Nunez MD at 05/03/2018 6:05 AM Report E-Signed By: Lg Nunez MD at 05/03/2018 6:24 AM WSN:[id number]
[2018-05-03 06:30] VITALS: BP 125/78
--- NOTE | 2018-05-03 06:30 | RADIOLOGY IMAGING REPORT ---
FACILITY: [facility] [place] PATIENT NAME: Timi Colvin : 1960 MR: [id number] V: [id number] EXAM DATE: ORDERING PHYSICIAN: CEDRIC CERVANTES TECHNOLOGIST: Location: [facility] Patient: Timi Colvin : 1960 Visit/Account:[id number] Date of Sevice: 05/03/2018 INDICATION: fall, seizure EXAM DATE: 05/03/2018 3:40 AM COMPARISON: Same-day CT chest. FINDINGS: 2 views of the left shoulder. Mineralization is normal. No acute alignment abnormality or fracture. Incompletely imaged vagal nerve stimulator. No apparent acute soft tissue abnormality. IMPRESSION: No acute osseous abnormality of the left shoulder. Report Dictated By: Lg Nunez MD at 05/03/2018 6:24 AM Report E-Signed By: Lg Nunez MD at 05/03/2018 6:26 AM WSN:[id number]
--- NOTE | 2018-05-03 06:31 | RADIOLOGY IMAGING REPORT ---
FACILITY: [facility] PATIENT NAME: Timi Colvin : 1960 MR: [id number] V: [id number] EXAM DATE: [id number] ORDERING PHYSICIAN: CEDRIC CERVANTES TECHNOLOGIST: Location: [facility] Patient: Timi Colvin : 1960 Visit/Account:[id number] Date of Sevice: 05/03/2018 INDICATION: fall, seizure EXAM DATE: 05/03/2018 3:40 AM COMPARISON: Same-day chest CT. FINDINGS: 2 views of the right shoulder. Mineralization is normal. No acute alignment abnormality or fracture. Soft tissues are nonacute. Thyroidectomy clips. IMPRESSION: No acute osseous abnormality of the right shoulder. Report Dictated By: Lg Nunez MD at 05/03/2018 6:26 AM Report E-Signed By: Lg Nunez MD at 05/03/2018 6:27 AM WSN:[id number]
--- NOTE | 2018-05-03 06:41 | RADIOLOGY IMAGING REPORT ---
FACILITY: [facility] [place] PATIENT NAME: Timi Colvin : 1960 MR: [id number] V: [id number] EXAM DATE: ORDERING PHYSICIAN: CEDRIC CERVANTES TECHNOLOGIST: Location: [facility] [place] Patient: Timi Colvin : 1960 Visit/Account:[id number] Date of Sevice: 05/03/2018 CT of the chest, with contrast; CT of the thoracic spine, without contrast: Indication: Seizure and fall. Technique: Imaging of the thoracic spine was performed without contrast. Helical CT was performed thr ough the chest following IV contrast enhancement with 75 cc of Isovue-370. Multiplanar reconstruction s are reviewed. One of the following dose optimization techniques was utilized in the performance of this exam: Autom ated exposure control; adjustment of the mA and/or kV according to the patient's size; or use of an i terative reconstruction technique. Specific details can be referenced in the facility's radiology CT exam operational policy. Comparison: CT scan dated 04/02/2018. Plain radiograph of the chest dated 04/14/2018. Lung michael: There are scattered reticulonodular opacities in both lungs, compatible with chronic fib rotic lung disease. There is been no significant change. No focal consolidation or volume loss is soy ntified. Pleural spaces: There is no evidence of pneumothorax or effusion. Mediastinum: Unremarkable. Heart and vascular structures: There is uniform enhancement of the vascular structures. There are no signs of acute injury. No evidence of aneurysm, dissection, or atherosclerosis. The heart and pericar dial soft tissues appear unremarkable. Skeletal structures: There are subacute fractures in the lateral margins of the right fourth, fifth, and sixth ribs. No other acute skeletal deformities are identified. There is mild degenerative disc space narrowing in the thoracic spine, without evidence of marginal o steophyte formation. There is normal mineralization. No paraspinal soft tissue abnormality is identif ied. Upper abdomen: A few small cysts are present in the liver. The upper abdomen is otherwise unremarkabl e, as visualized. IMPRESSION: No acute process is identified in the lung michael, pleural spaces, or mediastinum. There are healing fractures of the right fourth, fifth, and sixth ribs. No acute deformity is identified in the thoracic spine. Report Dictated By: Len Cardoza MD at 05/03/2018 6:16 AM Report E-Signed By: Len Cardoza MD at 05/03/2018 6:37 AM WSN:[id number]
--- NOTE | 2018-05-03 06:41 | RADIOLOGY IMAGING REPORT ---
[place] [facility] [place] Timi Colvin : 1960 MR: [id number] V: [id number] EXAM DATE: ORDERING PHYSICIAN: CEDRIC CREVANTES TECHNOLOGIST: Location: [facility] Patient: Timi Colvin : 1960 Visit/Account:[id number] Date of Sevice: 05/03/2018 CT of the chest, with contrast; CT of the thoracic spine, without contrast: Indication: Seizure and fall. Technique: Imaging of the thoracic spine was performed without contrast. Helical CT was performed thr ough the chest following IV contrast enhancement with 75 cc of Isovue-370. Multiplanar reconstruction s are reviewed. One of the following dose optimization techniques was utilized in the performance of this exam: Autom ated exposure control; adjustment of the mA and/or kV according to the patient's size; or use of an i terative reconstruction technique. Specific details can be referenced in the facility's radiology CT exam operational policy. Comparison: CT scan dated 04/02/2018. Plain radiograph of the chest dated 04/14/2018. Lung michael: There are scattered reticulonodular opacities in both lungs, compatible with chronic fib rotic lung disease. There is been no significant change. No focal consolidation or volume loss is soy ntified. Pleural spaces: There is no evidence of pneumothorax or effusion. Mediastinum: Unremarkable. Heart and vascular structures: There is uniform enhancement of the vascular structures. There are no signs of acute injury. No evidence of aneurysm, dissection, or atherosclerosis. The heart and pericar dial soft tissues appear unremarkable. Skeletal structures: There are subacute fractures in the lateral margins of the right fourth, fifth, and sixth ribs. No other acute skeletal deformities are identified. There is mild degenerative disc space narrowing in the thoracic spine, without evidence of marginal o steophyte formation. There is normal mineralization. No paraspinal soft tissue abnormality is identif ied. Upper abdomen: A few small cysts are present in the liver. The upper abdomen is otherwise unremarkabl e, as visualized. IMPRESSION: No acute process is identified in the lung michael, pleural spaces, or mediastinum. There are healing fractures of the right fourth, fifth, and sixth ribs. No acute deformity is identified in the thoracic spine. Report Dictated By: Len Cardoza MD at 05/03/2018 6:16 AM Report E-Signed By: Len Cardoza MD at 05/03/2018 6:37 AM WSN:[id number]
--- NOTE | 2018-05-03 06:42 | RADIOLOGY IMAGING REPORT ---
FACILITY: [facility] [place] PATIENT NAME: Timi Colvin : 1960 MR: [id number] V: [id number] EXAM DATE: ORDERING PHYSICIAN: CEDRIC CERVANTES TECHNOLOGIST: Location: [facility] Patient: Timi Colvin : 1960 Visit/Account:[id number] Date of Sevice: 05/03/2018 PORTABLE CHEST: Indication: Injury. Technique: A single frontal film was obtained. Comparison: 04/14/2018 Skeletal and soft tissue structures: A healing fracture of the right fifth rib is identified. No acut e skeletal deformities are otherwise noted. Heart and mediastinum: Within normal limits. Lung michael: There are chronic reticulonodular opacities in both lungs, compatible with fibrotic software manager elbert lung disease. No new focal areas of consolidation are identified. Pleural spaces: No evidence of pneumothorax or effusion. Impression: No acute interval change. Report Dictated By: Len Cardoza MD at 05/03/2018 6:37 AM Report E-Signed By: Len Cardoza MD at 05/03/2018 6:39 AM WSN:[id number]
[2018-05-03] MEDS ORDERED: CEPH500C24 PO (06:54)
[2018-05-03] MEDS ORDERED: DIVA500T98 PO (06:54)
[2018-05-03] MEDS ORDERED: CEPHALEXIN MONO 500 MG CAP PO ONE (06:55)
== END 2018-05-03 07:38 | disposition home or self-care (01) ==
LOC: ER 03:47
DX: G40.909 Epilepsy, unspecified, not intractable, without status epilepticus (principal); L03.113 Cellulitis of right upper limb; S20.419A Abrasion of unspecified back wall of thorax, initial encounter
CPT/HCPCS: 36415; 70450; 71045; 71260; 72125; 72128; 73030; 80164; 85025; 96365; 96366; 96375; 99285; A9270; J0330; J3010; J3490; J7030; J7050; Q9967; 82040; 82247; 82310; 82374; 82435; 82565; 82947; 84075; 84132; 84155; 84295; 84450; 84460; 84520

== ENCOUNTER 2018-05-03 21:29 | Inpatient (IN) | payer MEDICARE, MEDICAID ==
[~2018-05-03] VITALS: Ht 172.7 cm; Wt 67.6 kg
[~2018-05-03 21:29] MED LIST changes: +CEPH500C24 PO; -HYDR-4309 PO; +HYDR-653 PO
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
[2018-05-03] MEDS ORDERED: OLANZapine 10 MG VIAL IM ONLY ONE (21:50)
[2018-05-03] MEDS ORDERED: diphenhydrAMINE 50 MG/ML VIAL IVP ONE (21:50)
[2018-05-03] MEDS ORDERED: WATER STERILE 10 ML VIAL IM ONLY ONE (21:50)
[2018-05-03] MEDS ORDERED: LORazepam 2 MG/ML VIAL IVP ONE (21:50)
[2018-05-03] MEDS ORDERED: KETAMINE HCL 500 MG/5 ML VIAL IM ONE (23:20)
[2018-05-03] MEDS ORDERED: ETOMIDATE 20 MG/10 ML VIAL IVP ONE (23:40)
[2018-05-03] MEDS ORDERED: SUCCINYLCHOL CHL 100MG/5ML SYR IVP ONE (23:40)
[2018-05-04] VITALS (79 sets, daily range): BP systolic 76–133; BP diastolic 38–81; Ht 172.7 cm; Wt 67.6 kg
[2018-05-04] MEDS: PROPOFOL(*)1000 MG/100 ML VIAL 100 ML IV PRN ×3 (00:05→16:33)
[2018-05-04 00:29] LABS: PLATELET COUNT, AUTOMATED 174 K/uL (150-450)
[2018-05-04] MEDS ORDERED: ROCURONIUM BROM 10 MG/ML 5 ML IVP ONE ×3 (00:45→02:25)
[2018-05-04] MEDS: ROCURONIUM BROM 10 MG/ML 10 ML IVP PRN ×3 (00:51→02:20)
[2018-05-04] MEDS ORDERED: HYDROMORPHONE HCL 1 MG/ML SYRINGE IVP ONE (01:25)
--- NOTE | 2018-05-04 02:07 | RADIOLOGY IMAGING REPORT ---
FACILITY: [facility] - [place] PATIENT NAME: Timi Colvin : 1960 MR: [id number] V: [id number] EXAM DATE: ORDERING PHYSICIAN: CEDRIC CERVANTES TECHNOLOGIST: Location: [facility] - [place] Patient: Timi Colvin : 1960 Visit/Account:[id number] Date of Sevice: 05/03/2018 CT Head without contrast Indication: Seizures, confusion, falls. Comparison: Yesterday. Technique: Axial CT images were obtained through the brain from the skull base to the vertex without administration of IV contrast. One of the following dose optimization techniques was utilized in th e performance of this exam: Automated exposure control; adjustment of the mA and/or kV according to t he patient's size; or use of an iterative reconstruction technique. Specific details can be referen franco in the facility's radiology CT exam operational policy. Findings: No evidence of mass, mass effect, or midline shift. No acute intracranial hemorrhage or acute territorial infarction. Mild global volume loss. No acute skull fracture. Globes and orbits are grossly normal. Fluid in the nasopharynx and left maxillary sinus likely related to intubation. Retained material in the right side of the oral cavity on today's examination, rather than left as on the previous. Incompletely imaged endotracheal tube. IMPRESSION: No intracranial abnormality or significant change. Report Dictated By: Lg Nunez MD at 05/04/2018 1:55 AM Report E-Signed By: Lg Nunez MD at 05/04/2018 2:02 AM WSN:[id number]
--- NOTE | 2018-05-04 02:09 | RADIOLOGY IMAGING REPORT ---
FACILITY: [facility] PATIENT NAME: Timi Colvin : 1960 MR: [id number] V: [id number] EXAM DATE: [id number] ORDERING PHYSICIAN: CEDRIC CERVANTES TECHNOLOGIST: Location: [facility] [place] Patient: Timi Colvin : 1960 Visit/Account:[id number] Date of Sevice: 05/03/2018 ELBOW RIGHT W/O CONTRAST INDICATION: elbow swelling, traumatic wounds last week EXAM DATE: 05/03/2018 10:21 PM COMPARISON: 04/14/2018. TECHNIQUE: Axial noncontrast CT images of the right elbow were obtained. Sagittal and coronal recons tructions were performed. One of the following dose optimization techniques was utilized in the perf ormance of this exam: Automated exposure control; adjustment of the mA and/or kV according to the pat ient's size; or use of an iterative reconstruction technique. Specific details can be referenced in the facility's radiology CT exam operational policy. FINDINGS: Examination limited by motion artifact. There is a dorsal soft tissue defect overlying the proximal forearm with prominent adjacent edema in skin thickening. No well-demonstrated drainable c ollection/abscess. No radiopaque foreign body. Triceps enthesophyte. IMPRESSION: Limited examination with probable dorsal cellulitis at the right elbow with soft tissue d efect at the proximal forearm. No well-demonstrated drainable collection/abscess or acute osseous ab normality. Report Dictated By: Lg Nunez MD at 05/04/2018 2:02 AM Report E-Signed By: Lg Nunez MD at 05/04/2018 2:06 AM WSN:[id number]
[2018-05-04] MEDS ORDERED: MIDAZOLAM 10 MG/2 ML VIAL IVP ONE (02:25)
[2018-05-04] MEDS ORDERED: VANCOMYCIN 1 GM ADDVIAL 1 GM in NS(*) 0.9% 250 ML ADDVAN BAG 250 ML IVPB ONE (02:30)
--- NOTE | 2018-05-04 02:43 | RADIOLOGY IMAGING REPORT ---
FACILITY: [facility] - [place], [place] PATIENT NAME: Timi Colvin : 1960 MR: [id number] V: [id number] EXAM DATE: ORDERING PHYSICIAN: CEDRIC CERVANTES TECHNOLOGIST: Location: [facility] Patient: Timi Colvin : 1960 Visit/Account:[id number] Date of Sevice: 05/04/2018 AP CHEST 05/04/2018 1:43 AM. INDICATION: intubation COMPARISON: Yesterday. FINDINGS: Endotracheal tube terminates in the upper 3rd of the thoracic trachea approximately 8.4 cm above the ella. The inflated balloon is likely partially above the thoracic inlet. Unchanged left-sided vag al nerve stimulator. Lungs are well-expanded. Chronic fibrotic changes similar to prior. No pleural effusion or pneumotho rax. Heart size is normal. IMPRESSION: Endotracheal tube is 8.4 cm above the ella in the upper 3rd of the thoracic trachea. T his could be advanced 3 to 4 cm indicated. Otherwise unchanged. . Report Dictated By: Lg Nunez MD at 05/04/2018 2:37 AM Report E-Signed By: Lg Nunez MD at 05/04/2018 2:39 AM WSN:[id number]
[2018-05-04] MEDS ORDERED: SUCCINYLCHOL CHL 200MG/10ML VL IVP ONE (02:45)
[2018-05-04] MEDS ORDERED: NS(*) 0.9% 1000 ML BAG 1,000 ML IV ONE (02:45)
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
[2018-05-04] MEDS ORDERED: FLUSH 10 ML SYR IVP PRN (04:15)
[2018-05-04] MEDS ORDERED: FOSPHENYTOIN(*) 500 MG/10 ML V 1,000 MG in NS(*) 0.9% 100 ML BAG 80 ML IVPB ONE (04:25)
[2018-05-04] MEDS: NS(*) 0.9% 1000 ML BAG 1,000 ML IV PRN ×2 (04:52→14:04)
--- NOTE | 2018-05-04 04:57 | RADIOLOGY IMAGING REPORT ---
FACILITY: [facility] PATIENT NAME: Timi Colvin : 1960 MR: [id number] V: [id number] EXAM DATE: ORDERING PHYSICIAN: OTIS ABRAMS TECHNOLOGIST: Location: [facility] - [place] Patient: Timi Colvin : 1960 Visit/Account:[id number] Date of Sevice: 05/04/2018 Portable chest: Indication: Tube placement. Technique: A single frontal film was obtained. Comparison: A prior study from earlier the same day. Lines and tubes: The tip of the ET tube is now 5.8 cm above the ella. Skeletal and soft tissue structures: Intact and unchanged. Heart and mediastinum: Stable. Lung michael: There are chronic fibrotic opacities. No acute interval changes are noted. Pleural spaces: Unremarkable. Impression: The tip of the ET tube is now 5.8 cm above the ella. Report Dictated By: Len Cardoza MD at 05/04/2018 4:51 AM Report E-Signed By: Len Cardoza MD at 05/04/2018 4:54 AM WSN:[id number]
[2018-05-04] MEDS ORDERED: NS(*) 0.9% 100 ML BAG 200 ML ONE (04:59)
[2018-05-04] MEDS ORDERED: NS(*) 0.9% 500 ML BAG 500 ML ONE (04:59)
[2018-05-04] MEDS ORDERED: ERTAPENEM(*) 1 GM VIAL 1 GM in NS(*) 0.9% 100 ML ADDVANT BAG 100 ML IVPB SCH (05:00)
[2018-05-04 07:50] LABS: PLATELET COUNT, AUTOMATED 165 K/uL (150-450)
[2018-05-04] MEDS: ENOXAPARIN 40 MG/0.4ML SYR SC SCH (08:17)
[2018-05-04] MEDS: LORazepam 2 MG/ML VIAL IVP PRN ×4 (08:17→22:22)
[2018-05-04] MEDS: ORAL SUCTION/CHLORHX/SWAB KIT MT SCH ×2 (08:17→21:18)
[2018-05-04] MEDS: ceFAZolin 1 GM VIAL IVP SCH ×2 (08:59→16:31)
[2018-05-04] MEDS: NS 0.9% IVPB SCH ×4 (08:59→21:18)
[2018-05-04] MEDS: VALPROATE SOD IVPB SCH ×2 (08:59→21:18)
[2018-05-04] MEDS: LEVOTHYROXINE SOD 100 MCG VIAL IVP SCH (09:17)
--- NOTE | 2018-05-04 10:25 | RADIOLOGY IMAGING REPORT ---
FACILITY: [facility] PATIENT NAME: Timi Colvin : 1960 MR: [id number] V: [id number] EXAM DATE: ORDERING PHYSICIAN: CLAIRE CHATTERJEE TECHNOLOGIST: Location: [facility] [place] Patient: Timi Colvin : 1960 Visit/Account:[id number] Date of Sevice: 05/04/2018 CHEST SINGLE AP INDICATION: Line placement. COMPARISON: Chest x-ray dated 05/04/2018. FINDINGS: Single frontal view of the lower chest and abdomen. The enteric tube terminates in the proximal to mid stomach. The side port is below the GE junction. Stable interstitial opacities in the lung bases. Stable heart size. Nonobstructive bowel gas pattern. IMPRESSION: The enteric tube terminates in the proximal to mid stomach. Report Dictated By: Ankush Groves MD at 05/04/2018 10:20 AM Report E-Signed By: Ankush Groves MD at 05/04/2018 10:21 AM WSN:[id number]
[2018-05-04] MEDS: [UNRECOGNIZED DRUG - OTHER] IVPB SCH ×2 (11:20→20:17)
[2018-05-04] MEDS: FOSPHENYTOIN IVPB SCH ×2 (11:20→20:17)
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
[2018-05-04] MEDS: POTASSIUM CHL 10% SF LIQ 20MEQ FT SCH ×2 (12:32→16:32)
[2018-05-04] MEDS: HYPROMELLOSE 0.4% LUB 15ML BTL OU PRN (12:32)
[2018-05-04] MEDS: ACETAMINOPHEN 160 MG/5 ML UDC FT PRN ×2 (12:33→16:32)
[2018-05-04] MEDS ORDERED: VANCOMYCIN(*) 1 GM VIAL 1 GM, VANCOMYCIN (*) 0.5 GM VIAL 0.5 GM in NS(*) 0.9% 250 ML BA... IVPB SCH (14:00)
[2018-05-04] MEDS ORDERED: VANCOMYCIN(*) 1 GM VIAL 1 GM, VANCOMYCIN (*) 0.5 GM VIAL 0.25 GM in NS(*) 0.9% 250 ML B... IVPB SCH (14:00)
[2018-05-04] MEDS ORDERED: IV BOLUS 500 ML IVSOL IV ONE (14:05)
[2018-05-05] VITALS (96 sets, daily range): BP systolic 83–112; BP diastolic 51–75
[2018-05-05] MEDS: ceFAZolin 1 GM VIAL IVP SCH ×3 (01:12→17:29)
[2018-05-05] MEDS: NS(*) 0.9% 500 ML BAG 500 ML IV PRN ×2 (01:13→09:55)
[2018-05-05] MEDS: PROPOFOL(*)1000 MG/100 ML VIAL 100 ML IV PRN ×3 (01:13→15:53)
[2018-05-05] MEDS: LORazepam 2 MG/ML VIAL IVP PRN ×4 (01:54→20:14)
[2018-05-05] MEDS: NS 0.9% IVPB SCH ×5 (03:47→21:18)
[2018-05-05] MEDS: FOSPHENYTOIN IVPB SCH ×3 (03:47→19:56)
[2018-05-05] MEDS: [UNRECOGNIZED DRUG - OTHER] IVPB SCH ×3 (03:47→19:56)
[2018-05-05] MEDS: NS(*) 0.9% 1000 ML BAG 1,000 ML IV PRN (04:50)
[2018-05-05 06:06] LABS: PLATELET COUNT, AUTOMATED 131 K/uL (150-450)
[2018-05-05] MEDS: POTASSIUM CHL 10% SF LIQ 20MEQ FT SCH ×2 (08:31→17:29)
[2018-05-05] MEDS: LEVOTHYROXINE SOD 100 MCG VIAL IVP SCH (08:32)
[2018-05-05] MEDS: ORAL SUCTION/CHLORHX/SWAB KIT MT SCH ×2 (08:39→21:02)
[2018-05-05] MEDS: ENOXAPARIN 40 MG/0.4ML SYR SC SCH (08:40)
[2018-05-05] MEDS: VALPROATE SOD IVPB SCH ×2 (08:57→21:18)
--- NOTE | 2018-05-05 09:03 | Hospitalist Progress Note ---
Subjective Progress Notes Subjective This patient was admitted for seizures. He had no acute events overnight. Patient Complains of: Cardiovascular: No: Chest Pain Respiratory: No: Shortness of Breath Physical Exam Vital Signs Date Time Temp Pulse Resp B/P (MAP) Pulse Ox O2 Delivery O2 Flow Rate FiO2 05/05/18 08:00 75 05/05/18 08:00 97.4 16 88/53 (65) 95 Mechanical Ventilator 25.0 Intake and Output 05/05/18 07:00 Intake Total 3799 ml Output Total 890 ml Balance 2909 ml IV Total 3415 ml Tube Feeding 189 ml Tube Irrigant 195 ml Output Urine Total 890 ml Neuro: No Gross deficits (Sedated to RASS -2) Eyes: PERRLA Cardiovascular: Regular Rate and Rhythm Respiratory: Other (Bilateral breath sounds present.) GI: Soft and Non-Tender Extremities: No Edema Integumentary: No Cyanosis Result Diagram: 05/05/1851505/05/18515 Item Value Date Time Arterial Blood pH 7.45 05/05/18 050 Arterial Blood Partial Pressure CO2 32 mmHg 05/05/18 050 Arterial Blood Partial Pressure O2 80 mmHg 05/05/18 0500 Arterial Blood HCO3 22 mmol/L 05/05/18 0500 Assessment and Plan Problems: (1) Respiratory failure Assessment & Plan: He did develop respiratory failure secondary to sedation. He was intubated on 05/04. We will try to wean him to CPAP today. (2) Altered mental status Status: Acute Assessment & Plan: Most likely due to recurrent seizures. (3) Seizure disorder Status: Acute Assessment & Plan: He is notoriously noncompliant with his medications. We are administering IV fosphenytoin and valproate. (4) Cellulitis of right elbow Status: Acute Assessment & Plan: He was on vancomycin and ertapenem. He is now on Ancef. His cultures have been negative. (5) Adult hypothyroidism Onset Date: 08/24/2014 Status: Chronic Assessment & Plan: Due to thyroidectomy for thyroid cancer. He is receiving IV Synthroid. (6) Thyroid cancer Status: Chronic Exam Sepsis Risk: No Definite Risk Problem Qualifiers (1) Altered mental status: Altered mental status type: delirium Qualified Codes: R41.0 - Disorientation, unspecified ROSALINE GALARZA DO May 05, 2018 09:03
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
[2018-05-06] VITALS (83 sets, daily range): BP systolic 80–139; BP diastolic 50–81
[2018-05-06] MEDS: ceFAZolin 1 GM VIAL IVP SCH ×3 (00:34→17:24)
[2018-05-06] MEDS: LORazepam 2 MG/ML VIAL IVP PRN ×4 (01:10→17:24)
[2018-05-06] MEDS: NS 0.9% IVPB SCH ×5 (03:23→21:10)
[2018-05-06] MEDS: [UNRECOGNIZED DRUG - OTHER] IVPB SCH ×3 (03:23→20:32)
[2018-05-06] MEDS: FOSPHENYTOIN IVPB SCH ×3 (03:23→20:32)
[2018-05-06] MEDS: PROPOFOL(*)1000 MG/100 ML VIAL 100 ML IV PRN (03:27)
[2018-05-06] MEDS: NS(*) 0.9% 1000 ML BAG 1,000 ML IV PRN (03:27)
[2018-05-06] MEDS: ACETAMINOPHEN 160 MG/5 ML UDC FT PRN (03:34)
[2018-05-06 05:43] LABS: PLATELET COUNT, AUTOMATED 140 K/uL (150-450)
[2018-05-06] MEDS: HYPROMELLOSE 0.4% LUB 15ML BTL OU PRN (06:27)
[2018-05-06] MEDS: POTASSIUM CHL 10% SF LIQ 20MEQ FT SCH ×2 (08:37→17:00)
[2018-05-06] MEDS: ORAL SUCTION/CHLORHX/SWAB KIT MT SCH (08:38)
[2018-05-06] MEDS: ENOXAPARIN 40 MG/0.4ML SYR SC SCH (08:39)
--- NOTE | 2018-05-06 08:49 | Hospitalist Progress Note ---
Subjective Progress Notes Subjective He is awake and following some commands. He is tolerating the ventilator. Physical Exam Vital Signs Date Time Temp Pulse Resp B/P (MAP) Pulse Ox O2 Delivery O2 Flow Rate FiO2 05/06/18 06:59 77 16 05/06/18 06:59 95 Mechanical Ventilator 25.0 05/06/18 06:30 97.8 92/60 (71) 05/06/18 03:00 25.0 Intake and Output 05/06/18 07:00 Intake Total 2739 ml Output Total 2175 ml Balance 564 ml Intake Oral 0 ml IV Total 1604 ml Tube Feeding 732 ml Tube Irrigant 403 ml Output Urine Total 2175 ml General Appearance: Awake, Afebrile, Other (ET tube in place) Neuro: Other (Intermittently showing that he is understanding) Cardiovascular: Regular Rate and Rhythm Respiratory: Clear to Auscultation GI: Soft and Non-Tender Extremities: Edema (trace pitting above socks) Integumentary: No Jaundice, No Cyanosis; Other (Right elbow with swelling, mild erythema, and two scabbed areas about 1-2cm in length.) Result Diagram: 05/06/1851505/06/18515 Assessment and Plan Problems: (1) Respiratory failure Assessment & Plan: He did develop respiratory failure secondary to sedation for aggressive behavior. He was intubated on 05/04. He is on minimal ventilator settings (i.e. FiO2 25%). We will try to wean him to CPAP today and likely extubate. Sedated on propofol. (2) Altered mental status Status: Acute Assessment & Plan: Most likely due to recurrent seizures and possibly acute infection/cellulitis right elbow. He was extremely agitated/combative/violent, which necessitated sedation and ultimately intubation/mechanical ventilation. He is calm now but getting Propofol. Will have Ketamine and Precedex ready if extubation occurs. (3) Seizure disorder Status: Acute Assessment & Plan: Recurrent seizures due to noncompliance with regimen. Phen ytoin level was undetectable. No seizures since admission. Resumed anticonvulsants with IV fosphenytoin loading and then regular dosing. On regular dosing of the valproate as he does have a low level to start. Will resume oral dosing once he is extubated. Will have social work see as noncompliance has been a recurring theme with Mr. Colvin. He is obviously unable to adequately care for himself on his own. (4) Cellulitis of right elbow Status: Acute Assessment & Plan: Mild erythema. Low grade fever last night. Normal WBC and neutrophil percentage. He was on vancomycin and ertapenem. He is now on Ancef. His cultures have been negative. (5) Adult hypothyroidism Onset Date: 08/24/2014 Status: Chronic Assessment & Plan: Due to thyroidectomy for thyroid cancer. He is receiving IV Synthroid. (6) Thyroid cancer Status: Chronic Exam Sepsis Risk: No Definite Risk Problem Qualifiers (1) Altered mental status: Altered mental status type: delirium Qualified Codes: R41.0 - Disorientation, unspecified CT BECERRA MD May 06, 2018 08:49
[2018-05-06] MEDS: LEVOTHYROXINE SOD 100 MCG VIAL IVP SCH (09:00)
[2018-05-06] MEDS: VALPROATE SOD IVPB SCH ×2 (09:04→21:10)
[2018-05-06] MEDS: NS(*) 0.9% 500 ML BAG 500 ML IV PRN ×2 (09:28→20:36)
[2018-05-07] VITALS (16 sets, daily range): BP systolic 88–114; BP diastolic 52–74
[2018-05-07] MEDS: ceFAZolin 1 GM VIAL IVP SCH ×3 (00:27→17:22)
[2018-05-07] MEDS: FOSPHENYTOIN IVPB SCH (05:28)
[2018-05-07] MEDS: [UNRECOGNIZED DRUG - OTHER] IVPB SCH (05:28)
[2018-05-07] MEDS: NS 0.9% IVPB SCH (05:28)
[2018-05-07 05:34] LABS: PLATELET COUNT, AUTOMATED 160 K/uL (150-450)
[2018-05-07] MEDS: POTASSIUM CHL 10% SF LIQ 20MEQ FT SCH (08:19)
[2018-05-07] MEDS ORDERED: KCL (*) 20 MEQ/100 ML PREMIX 100 ML IV ONE (08:30)
[2018-05-07] MEDS: DIVALPROEX SOD DR 500 MG TAB PO SCH ×2 (09:17→20:25)
[2018-05-07] MEDS: LEVOTHYROXINE SOD 0.125 MG TAB PO SCH (09:41)
[2018-05-07] MEDS: ENOXAPARIN 40 MG/0.4ML SYR SC SCH (09:41)
[2018-05-07] MEDS: POTASSIUM CHL 10 MEQ TABCR PO SCH ×3 (09:41→17:22)
[2018-05-07] MEDS: PHENYTOIN ER 100 MG CAPER PO SCH (09:41)
--- NOTE | 2018-05-07 11:54 | Hospitalist Progress Note ---
Subjective Progress Notes Subjective He is awake and alert. We discussed options for helping him care for himself and options if he is unable to do so. Physical Exam Vital Signs Date Time Temp Pulse Resp B/P (MAP) Pulse Ox O2 Delivery O2 Flow Rate FiO2 05/07/18 08:00 84 05/07/18 05:35 92 Nasal Cannula 2.0 05/07/18 05:00 98.0 20 92/52 (65) 05/06/18 10:45 25.0 Intake and Output 05/07/18 07:00 Intake Total 3958 ml Output Total 5950 ml Balance -1992 ml Intake Oral 150 ml IV Total 2148 ml Tube Feeding 1400 ml Tube Irrigant 260 ml Output Urine Total 5950 ml # Bowel Movements 1 General Appearance: Alert, Awake ENT: Other (abrasion over nasal bridge with some eschar) Neck: No Masses Cardiovascular: Regular Rate and Rhythm Respiratory: Clear to Auscultation GI: Soft and Non-Tender Extremities: Warm, Perfused Integumentary: Other (right elbow shows less induration and erythema/eschars unchanged/multiple healing abrasions) Result Diagram: 05/07/18 0516 05/07/18 0516 Assessment and Plan Problems: (1) Respiratory failure Assessment & Plan: He did develop respiratory failure secondary to sedation for aggressive behavior. He was intubated on 05/04/18 and extubated 05/06/18. He does appear to be doing well from respiratory standpoint. (2) Altered mental status Status: Acute Assessment & Plan: Most likely due to recurrent seizures (post-ictal state) and possibly acute infection/cellulitis right elbow. He was extremely agitated/combative/violent, which necessitated sedation and ultimately intubation/mechanical ventilation. He is doing well at this time. He has been "re-loaded" with his anticonvulsants and has not had any recurrent seizures. (3) Seizure disorder Status: Acute Assessment & Plan: Recurrent seizures due to noncompliance with regimen. Phenytoin level was undetectable. No seizures since admission. Resumed anticonvulsants with IV fosphenytoin loading and then regular dosing. On regular dosing of the valproate as he did have a low level to start. We will now resume oral dosing. Will have social work see as noncompliance has been a recurring theme with Mr. Colvin. He is obviously having a very difficult time caring for himself (or unable to do so) . (4) Cellulitis of right elbow Status: Acute Assessment & Plan: Improved. Mild erythema and less induration. He was on initially on vancomycin and ertapenem and has been transitioned to Ancef. His cultures have been negative. (5) Adult hypothyroidism Onset Date: 08/24/2014 Status: Chronic Assessment & Plan: Due to thyroidectomy for thyroid cancer. He was receiving IV Synthroid and will be switched to oral levothyroxine. (6) Thyroid cancer Status: Chronic Exam Sepsis Risk: No Definite Risk Problem Qualifiers (1) Altered mental status: Altered mental status type: delirium Qualified Codes: R41.0 - Disorientation, unspecified OTIS ABRAMS MD May 07, 2018 11:53
[2018-05-07] MEDS ORDERED: NS(*) 0.9% 500 ML BAG 500 ML IV PRN (15:18)
[2018-05-07] MEDS ORDERED: DIVALPROEX SOD DR 500 MG TAB PO ONE (21:00)
[2018-05-08] MEDS: ceFAZolin 1 GM VIAL IVP SCH (00:22)
[2018-05-08 04:04] VITALS: BP 112/70
[2018-05-08 05:50] LABS: PLATELET COUNT, AUTOMATED 194 K/uL (150-450)
[2018-05-08] MEDS: LEVOTHYROXINE SOD 0.125 MG TAB PO SCH (07:07)
[2018-05-08 08:46] VITALS: BP 94/56
[2018-05-08] MEDS: ENOXAPARIN 40 MG/0.4ML SYR SC SCH (08:47)
[2018-05-08] MEDS: CEPHALEXIN MONO 500 MG CAP PO SCH ×4 (08:48→20:53)
[2018-05-08] MEDS: POTASSIUM CHL 10 MEQ TABCR PO SCH ×2 (08:48→12:44)
[2018-05-08] MEDS: PHENYTOIN ER 100 MG CAPER PO SCH (08:48)
[2018-05-08] MEDS: DIVALPROEX SOD DR 500 MG TAB PO SCH ×3 (08:48→20:53)
--- NOTE | 2018-05-08 09:50 | Hospitalist Progress Note ---
Subjective Progress Notes Subjective This patient was admitted for altered mental status secondary to seizures. He had no acute events overnight. Patient Complains of: Cardiovascular: No: Chest Pain Respiratory: No: Shortness of Breath Physical Exam Vital Signs Date Time Temp Pulse Resp B/P (MAP) Pulse Ox O2 Delivery O2 Flow Rate FiO2 05/08/18 08:46 97.9 72 18 94/56 (69) 90 Room Air 05/07/18 15:39 2.0 05/06/18 10:45 25.0 l Intake and Output 05/08/18 06:59 Intake Total 1057 ml Output Total 400 ml Balance 657 ml Intake Oral 952 ml IV Total 105 ml Output Urine Total 400 ml # Voids 4 Cardiovascular: Regular Rate and Rhythm Respiratory: Clear to Auscultation Result Diagram: 05/08/1852505/08/18525 Assessment and Plan Problems: (1) Respiratory failure Assessment & Plan: He did develop respiratory failure secondary to sedation for aggressive behavior. He was intubated on 05/04/18 and extubated 05/06/18. He does appear to be doing well from respiratory standpoint. (2) Altered mental status Status: Acute Assessment & Plan: Most likely due to recurrent seizures (post-ictal state) and possibly acute infection/cellulitis right elbow. He was extremely agitated/combative/violent, which necessitated sedation and ultimately intubation/mechanical ventilation. He is doing well at this time. He has been "re-loaded" with his anticonvulsants and has not had any recurrent seizures. (3) Seizure disorder Status: Acute Assessment & Plan: Recurrent seizures due to noncompliance with regimen. Phenytoin level was undetectable. No seizures since admission. Resumed anticonvulsants with IV fosphenytoin loading and then regular dosing. On regular dosing of the valproate as he did have a low level to start. We will now resume oral dosing. Will have social work see as noncompliance has been a recurring theme with Mr. Colvin. He is obviously having a very difficult time caring for himself (or unable to do so) . (4) Cellulitis of right elbow Status: Acute Assessment & Plan: Mild erythema and less induration. He was on initially on vancomycin and ertapenem and has been transitioned to Ancef. He is now on Keflex. (5) Adult hypothyroidism Onset Date: 08/24/2014 Status: Chronic Assessment & Plan: Due to thyroidectomy for thyroid cancer. He was receiving IV Synthroid and will be switched to oral levothyroxine. (6) Thyroid cancer Status: Chronic Exam Sepsis Risk: No Definite Risk Problem Qualifiers (1) Altered mental status: Altered mental status type: delirium Qualified Codes: R41.0 - Disorientation, unspecified ROSALINE GALARZA DO May 08, 2018 09:50
[2018-05-08 11:27] VITALS: BP 107/62
[2018-05-08 14:45] VITALS: BP 83/42
[2018-05-08 20:47] VITALS: BP 92/63
[2018-05-09 05:29] VITALS: BP 87/47
[2018-05-09] MEDS: LEVOTHYROXINE SOD 0.125 MG TAB PO SCH (05:32)
[2018-05-09 08:52] VITALS: BP 92/60
[2018-05-09] MEDS: CEPHALEXIN MONO 500 MG CAP PO SCH ×4 (08:56→21:06)
[2018-05-09] MEDS: ENOXAPARIN 40 MG/0.4ML SYR SC SCH (08:56)
[2018-05-09] MEDS: PHENYTOIN ER 100 MG CAPER PO SCH (08:56)
[2018-05-09] MEDS: DIVALPROEX SOD DR 500 MG TAB PO SCH ×3 (08:57→21:06)
--- NOTE | 2018-05-09 10:11 | Hospitalist Progress Note ---
Subjective Progress Notes Subjective He has no complaints this morning. He had no acute events overnight. Patient Complains of: Cardiovascular: No: Chest Pain Respiratory: No: Shortness of Breath Physical Exam Vital Signs Date Time Temp Pulse Resp B/P (MAP) Pulse Ox O2 Delivery O2 Flow Rate FiO2 05/09/18 09:00 93 Room Air 05/09/18 08:52 97.6 70 16 92/60 (71) 05/07/18 15:39 2.0 05/06/18 10:45 25.0 Intake and Output 05/09/18 07:00 Intake Total 1162 ml Balance 1162 ml Intake Oral 1162 ml # Voids 3 General Appearance: Alert, Awake, No Acute Distress, Afebrile Neuro: No Gross deficits Cardiovascular: Regular Rate and Rhythm Respiratory: No Respiratory Distress, Clear to Auscultation GI: Soft and Non-Tender Psych: Alert & Oriented X3, Appropriate Mood & Affect Result Diagram: 05/08/1852505/08/18525 Assessment and Plan Problems: (1) Respiratory failure Assessment & Plan: He did develop respiratory failure secondary to sedation for aggressive behavior. He was intubated on 05/04/18 and extubated 05/06/18. He does appear to be doing well from respiratory standpoint. (2) Altered mental status Status: Acute Assessment & Plan: Most likely due to recurrent seizures (post-ictal state) and possibly acute infection/cellulitis right elbow. He was extremely agitated/combative/violent, which necessitated sedation and ultimately intubation/mechanical ventilation. He is doing well at this time. He has been "re-loaded" with his anticonvulsants and has not had any recurrent seizures. (3) Seizure disorder Status: Acute Assessment & Plan: Recurrent seizures due to noncompliance with regimen. Phenytoin level was undetectable. No seizures since admission. Resumed anticonvulsants with IV fosphenytoin loading and then regular dosing. On regular dosing of the valproate as he did have a low level to start. We will now resume oral dosing. Will have social work work on placement of patient, as noncompliance has been a recurring theme with Mr. Colvin. He is obviously having a very difficult time caring for himself (or unable to do so) . (4) Cellulitis of right elbow Status: Acute Assessment & Plan: Mild erythema and less induration. He was on initially on vancomycin and ertapenem and has been transitioned to Ancef. He is now on Keflex. (5) Adult hypothyroidism Onset Date: 08/24/2014 Status: Chronic Assessment & Plan: Due to thyroidectomy for thyroid cancer. He was receiving IV Synthroid and will be switched to oral levothyroxine. (6) Thyroid cancer Status: Chronic Exam Sepsis Risk: No Definite Risk Problem Qualifiers (1) Altered mental status: Altered mental status type: delirium Qualified Codes: R41.0 - Disorientation, unspecified DIANA MOODY DRUM SPRAYER May 09, 2018 10:11
[2018-05-09 15:00] VITALS: BP 95/60
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
[2018-05-09 20:05] VITALS: BP 106/56
[2018-05-10 03:00] VITALS: BP 91/57
[2018-05-10] MEDS: LEVOTHYROXINE SOD 0.125 MG TAB PO SCH (05:59)
--- NOTE | 2018-05-10 08:03 | Hospitalist Progress Note ---
Subjective Progress Notes Subjective He denies any problems this AM. He has not had any recurrent seizures. Physical Exam Vital Signs Date Time Temp Pulse Resp B/P (MAP) Pulse Ox O2 Delivery O2 Flow Rate FiO2 05/10/18 03:00 97.6 70 16 91/57 (68) 92 Room Air 05/07/18 15:39 2.0 05/06/18 10:45 25.0 Intake and Output 05/10/18 07:00 Intake Total 960 ml Balance 960 ml Intake Oral 960 ml # Voids 5 General Appearance: Alert, Awake Extremities: Other (right elbow with less erythema/edema/induration) Result Diagram: 05/08/18 0505/08/18 05 Assessment and Plan Problems: (1) Respiratory failure Assessment & Plan: He did develop respiratory failure secondary to sedation for aggressive behavior. He was intubated on 05/04/18 and extubated 05/06/18. He does appear to be doing well from respiratory standpoint. (2) Altered mental status Status: Acute Assessment & Plan: Most likely due to recurrent seizures (post-ictal state) and possibly acute infection/cellulitis right elbow. He was extremely agitated/combative/violent, which necessitated sedation and ultimately intubation/mechanical ventilation. He is doing well at this time. He has been "re-loaded" with his anticonvulsants and has not had any recurrent seizures. (3) Seizure disorder Status: Acute Assessment & Plan: Recurrent seizures due to noncompliance with regimen. Phenytoin level was undetectable. No seizures since admission. We have resumed oral dosing. Will check drug levels in AM. Will have social work work on placement of patient, as noncompliance has been a recurring theme with Mr. Colvin. He is obviously having a very difficult time caring for himself (or unable to do so) . (4) Cellulitis of right elbow Status: Acute Assessment & Plan: Mild erythema and less induration. He was on initially on vancomycin and ertapenem and then transitioned to Ancef. He is now on oral Keflex. (5) Adult hypothyroidism Onset Date: 08/24/2014 Status: Chronic Assessment & Plan: Due to thyroidectomy for thyroid cancer. He was initially receiving IV Synthroid and has been transitioned to oral levothyroxine. (6) Thyroid cancer Status: Chronic Exam Sepsis Risk: No Definite Risk Problem Qualifiers (1) Altered mental status: Altered mental status type: delirium Qualified Codes: R41.0 - Disorientation, unspecified OTIS ABRAMS MD May 10, 2018 08:03
[2018-05-10 08:26] VITALS: BP 96/57
[2018-05-10] MEDS: ENOXAPARIN 40 MG/0.4ML SYR SC SCH (09:39)
[2018-05-10] MEDS: CEPHALEXIN MONO 500 MG CAP PO SCH ×4 (09:40→21:08)
[2018-05-10] MEDS: DIVALPROEX SOD DR 500 MG TAB PO SCH ×3 (09:40→21:07)
[2018-05-10] MEDS: PHENYTOIN ER 100 MG CAPER PO SCH (09:41)
[2018-05-10 12:33] VITALS: BP 93/56
[2018-05-10 14:47] VITALS: BP 106/55
[2018-05-10 21:00] VITALS: BP 94/54
[2018-05-10 23:31] VITALS: BP 86/58
[2018-05-11] MEDS: LEVOTHYROXINE SOD 0.125 MG TAB PO SCH (05:55)
[2018-05-11 06:12] LABS: PLATELET COUNT, AUTOMATED 235 K/uL (150-450)
--- NOTE | 2018-05-11 08:15 | Hospitalist Progress Note ---
Subjective Progress Notes Subjective No new complaints. Physical Exam Vital Signs Date Time Temp Pulse Resp B/P (MAP) Pulse Ox O2 Delivery O2 Flow Rate FiO2 05/10/18 23:31 97.6 82 16 86/58 (67) 92 Room Air 05/10/18 10:11 2.0 Intake and Output 05/11/18 07:00 Intake Total 1284 ml Balance 1284 ml Intake Oral 1284 ml # Voids 5 # Bowel Movements 2 General Appearance: Alert, Awake, No Acute Distress Cardiovascular: Regular Rate and Rhythm Respiratory: Clear to Auscultation GI: Soft and Non-Tender Extremities: Warm, Perfused, Other (R elbow with some swelling and redness. One small open wound without significant drainage.) Integumentary: Other (See above. A few abrasions over both both shins.) Result Diagram: 05/11/1834 05/11/1834 Assessment and Plan Problems: (1) Respiratory failure Assessment & Plan: He did develop respiratory failure secondary to sedation for aggressive behavior. He was intubated on 05/04/18 and extubated 05/06/18. He does appear to be doing well from respiratory standpoint. (2) Altered mental status Status: Acute Assessment & Plan: Most likely due to recurrent seizures (post-ictal state) and possibly acute infection/cellulitis right elbow. He was extremely agitated/combative/violent, which necessitated sedation and ultimately intubation/mechanical ventilation. He is doing well at this time. He has been "re-loaded" with his anticonvulsants and has not had any recurrent seizures. (3) Seizure disorder Status: Acute Assessment & Plan: Recurrent seizures due to noncompliance with regimen. Phenytoin level was undetectable. No seizures since admission. We have resumed oral dosing. Will check drug levels in AM. Will have social work work on placement of patient, as noncompliance has been a recurring theme with Mr. Colvin. He is obviously having a very difficult time caring for himself (or unable to do so) . (4) Cellulitis of right elbow Status: Acute Assessment & Plan: Improving. Mild erythema and less induration. He was on initially on vancomycin and ertapenem and then transitioned to Ancef. He is now on oral Keflex. (5) Adult hypothyroidism Onset Date: 08/24/2014 Status: Chronic Assessment & Plan: Due to thyroidectomy for thyroid cancer. He was initially receiving IV Synthroid and has been transitioned to oral levothyroxine. (6) Thyroid cancer Status: Chronic Time Spent on Plan of Care: < 30 min Exam Sepsis Risk: No Definite Risk Problem Qualifiers (1) Altered mental status: Altered mental status type: delirium Qualified Codes: R41.0 - Disorientation, unspecified SEMAJ ABRAMS MD May 11, 2018 08:15
[2018-05-11] MEDS: ENOXAPARIN 40 MG/0.4ML SYR SC SCH (08:25)
[2018-05-11] MEDS: DIVALPROEX SOD DR 500 MG TAB PO SCH ×3 (08:25→21:21)
[2018-05-11] MEDS: PHENYTOIN ER 100 MG CAPER PO SCH (08:25)
[2018-05-11] MEDS: CEPHALEXIN MONO 500 MG CAP PO SCH ×4 (08:25→21:21)
[2018-05-11 13:43] VITALS: BP 92/57
[2018-05-11 16:56] VITALS: BP 106/56
[2018-05-11 18:47] VITALS: BP 99/61
[2018-05-12 03:41] VITALS: BP 92/66
[2018-05-12] MEDS: LEVOTHYROXINE SOD 0.125 MG TAB PO SCH (05:25)
[2018-05-12 05:56] LABS: PLATELET COUNT, AUTOMATED 276 K/uL (150-450)
[2018-05-12 07:28] VITALS: BP 88/54
[2018-05-12] MEDS: ENOXAPARIN 40 MG/0.4ML SYR SC SCH (08:23)
[2018-05-12] MEDS: PHENYTOIN ER 100 MG CAPER PO SCH (08:23)
[2018-05-12] MEDS: DIVALPROEX SOD DR 500 MG TAB PO SCH ×3 (08:23→20:45)
[2018-05-12] MEDS: CEPHALEXIN MONO 500 MG CAP PO SCH ×4 (08:24→20:45)
--- NOTE | 2018-05-12 10:35 | Hospitalist Progress Note ---
Subjective Progress Notes Subjective He has no complaints this morning. He had no acute events overnight. Patient Complains of: Cardiovascular: No: Chest Pain Respiratory: No: Shortness of Breath Physical Exam Vital Signs Date Time Temp Pulse Resp B/P (MAP) Pulse Ox O2 Delivery O2 Flow Rate FiO2 05/12/18 07:28 97.8 76 15 88/54 (65) 92 Room Air 05/11/18 21:20 25.0 05/10/18 10:11 2.0 Intake and Output 05/12/18 00:59 Intake Total 1248 ml Balance 1248 ml Intake Oral 1248 ml # Voids 4 # Bowel Movements 1 General Appearance: Alert, Awake, No Acute Distress, Afebrile Neuro: No Gross deficits Cardiovascular: Regular Rate and Rhythm Respiratory: No Respiratory Distress, Clear to Auscultation GI: Soft and Non-Tender Extremities: Warm, Perfused; No Edema; Other (right elbow appears less reddened) Psych: Alert & Oriented X3, Appropriate Mood & Affect Result Diagram: 05/12/1852105/12/18521 Assessment and Plan Problems: (1) Respiratory failure Assessment & Plan: He did develop respiratory failure secondary to sedation for aggressive behavior. He was intubated on 05/04/18 and extubated 05/06/18. He does appear to be doing well from respiratory standpoint. (2) Altered mental status Status: Acute Assessment & Plan: Most likely due to recurrent seizures (post-ictal state) and possibly acute infection/cellulitis right elbow. He was extremely agitated/combative/violent, which necessitated sedation and ultimately intubation/mechanical ventilation. He is doing well at this time. He has been "re-loaded" with his anticonvulsants and has not had any recurrent seizures. (3) Seizure disorder Status: Acute Assessment & Plan: Recurrent seizures due to noncompliance with regimen. Phenytoin level was undetectable. No seizures since admission. We have resumed oral dosing. Continue to monitor drug levels. Will have social work work on placement of patient, as noncompliance has been a recurring theme with Mr. Colvin. He is obviously having a very difficult time caring for himself (or unable to do so) . (4) Cellulitis of right elbow Status: Acute Assessment & Plan: Improving. Mild erythema and less induration. He was on initially on vancomycin and ertapenem and then transitioned to Ancef. He is now on oral Keflex. (5) Adult hypothyroidism Onset Date: 08/24/2014 Status: Chronic Assessment & Plan: Due to thyroidectomy for thyroid cancer. He was initially receiving IV Synthroid and has been transitioned to oral levothyroxine. (6) Thyroid cancer Status: Chronic Exam Sepsis Risk: No Definite Risk Problem Qualifiers (1) Altered mental status: Altered mental status type: delirium Qualified Codes: R41.0 - Disorientation, unspecified DIANA MOODY [employer]ANCE SERVICE REPRESENTATIVE May 12, 2018 10:35
[2018-05-12 14:41] VITALS: BP 101/62
[2018-05-12 19:46] VITALS: BP 118/72
[2018-05-12] MEDS: ACETAMINOPHEN 325 MG TAB PO PRN (23:48)
[2018-05-13 03:46] VITALS: BP 94/62
[2018-05-13] MEDS: LEVOTHYROXINE SOD 0.125 MG TAB PO SCH (06:02)
[2018-05-13] MEDS: PHENYTOIN ER 100 MG CAPER PO SCH (08:15)
[2018-05-13] MEDS: CEPHALEXIN MONO 500 MG CAP PO SCH ×4 (08:15→20:29)
[2018-05-13] MEDS: ENOXAPARIN 40 MG/0.4ML SYR SC SCH (08:15)
[2018-05-13] MEDS: DIVALPROEX SOD DR 500 MG TAB PO SCH ×3 (08:15→20:29)
[2018-05-13 08:38] VITALS: BP 92/60
--- NOTE | 2018-05-13 11:01 | Hospitalist Progress Note ---
Subjective Progress Notes Subjective He has no complaints this morning. He is awaiting placement for continuation of care. Patient Complains of: Cardiovascular: No: Chest Pain Respiratory: No: Shortness of Breath Physical Exam Vital Signs Date Time Temp Pulse Resp B/P (MAP) Pulse Ox O2 Delivery O2 Flow Rate FiO2 05/13/18 03:46 97.5 77 12 94/62 (73) 92 Room Air 05/11/18 21:20 25.0 05/10/18 10:11 2.0 Intake and Output 05/13/18 07:00 Intake Total 522 ml Balance 522 ml Intake Oral 522 ml # Voids 4 # Bowel Movements 2 General Appearance: Alert, Awake, No Acute Distress, Afebrile Neuro: No Gross deficits Cardiovascular: Regular Rate and Rhythm Respiratory: No Respiratory Distress, Clear to Auscultation GI: Soft and Non-Tender Extremities: Warm, Perfused; No Edema; Other (elbow showing improvment with cellulitis) Psych: Alert & Oriented X3, Appropriate Mood & Affect Result Diagram: 05/12/1852105/12/18521 Assessment and Plan Problems: (1) Respiratory failure Assessment & Plan: He did develop respiratory failure secondary to sedation for aggressive behavior. He was intubated on 05/04/18 and extubated 05/06/18. He does appear to be doing well from respiratory standpoint. (2) Altered mental status Status: Acute Assessment & Plan: Most likely due to recurrent seizures (post-ictal state) and possibly acute infection/cellulitis right elbow. He was extremely agitated/combative/violent, which necessitated sedation and ultimately intubation/mechanical ventilation. He is doing well at this time. He has been "re-loaded" with his anticonvulsants and has not had any recurrent seizures. (3) Seizure disorder Status: Acute Assessment & Plan: Recurrent seizures due to noncompliance with regimen. Phenytoin level was undetectable. No seizures since admission. We have resumed oral dosing. Continue to monitor drug levels. Will have social work work on placement of patient, as noncompliance has been a recurring theme with Mr. Colvin. He is obviously having a very difficult time caring for himself (or unable to do so) . (4) Cellulitis of right elbow Status: Acute Assessment & Plan: Improving. Mild erythema and less induration. He was on initially on vancomycin and ertapenem and then transitioned to Ancef. He is now on oral Keflex. (5) Adult hypothyroidism Onset Date: 08/24/2014 Status: Chronic Assessment & Plan: Due to thyroidectomy for thyroid cancer. He was initially receiving IV Synthroid and has been transitioned to oral levothyroxine. (6) Thyroid cancer Status: Chronic Exam Sepsis Risk: No Definite Risk Problem Qualifiers (1) Altered mental status: Altered mental status type: delirium Qualified Codes: R41.0 - Disorientation, unspecified DIANA MOODY May 13, 2018 11:01
[2018-05-13 16:05] VITALS: BP 93/65
[2018-05-13 20:30] VITALS: BP 107/70
[2018-05-14] MEDS: LEVOTHYROXINE SOD 0.125 MG TAB PO SCH (05:54)
[2018-05-14 07:13] VITALS: BP 88/58
[2018-05-14] MEDS ORDERED: INFLUENZA VIRUS VAC 0.5ML SYR IM ONLY ONE (08:55)
[2018-05-14] MEDS: ENOXAPARIN 40 MG/0.4ML SYR SC SCH (09:02)
[2018-05-14] MEDS: PHENYTOIN ER 100 MG CAPER PO SCH (09:03)
[2018-05-14] MEDS: CEPHALEXIN MONO 500 MG CAP PO SCH ×4 (09:03→21:32)
[2018-05-14] MEDS: DIVALPROEX SOD DR 500 MG TAB PO SCH ×3 (09:03→21:34)
--- NOTE | 2018-05-14 11:20 | Hospitalist Progress Note ---
Subjective Progress Notes Subjective He has no complaints this morning. He had no acute events overnight. Patient Complains of: Cardiovascular: No: Chest Pain Respiratory: No: Shortness of Breath Physical Exam Vital Signs Date Time Temp Pulse Resp B/P (MAP) Pulse Ox O2 Delivery O2 Flow Rate FiO2 05/14/18 07:17 Room Air 05/14/18 07:13 97.1 66 16 88/58 (68) 93 05/11/18 21:20 25.0 05/10/18 10:11 2.0 Intake and Output 05/14/18 00:59 Intake Total 1482 ml Balance 1482 ml Intake Oral 1482 ml # Voids 5 # Bowel Movements 1 General Appearance: Alert, Awake, No Acute Distress, Afebrile Neuro: No Gross deficits Cardiovascular: Regular Rate and Rhythm Respiratory: No Respiratory Distress, Clear to Auscultation GI: Soft and Non-Tender Extremities: Warm, Perfused; No Edema Psych: Alert & Oriented X3, Appropriate Mood & Affect Result Diagram: 05/12/1852105/12/18521 Assessment and Plan Problems: (1) Respiratory failure Assessment & Plan: He did develop respiratory failure secondary to sedation for aggressive behavior. He was intubated on 05/04/18 and extubated 05/06/18. He does appear to be doing well from respiratory standpoint. (2) Altered mental status Status: Acute Assessment & Plan: Most likely due to recurrent seizures (post-ictal state) and possibly acute infection/cellulitis right elbow. He was extremely agitated/combative/violent, which necessitated sedation and ultimately intubation/mechanical ventilation. He is doing well at this time. He has been "re-loaded" with his anticonvulsants and has not had any recurrent seizures. (3) Seizure disorder Status: Acute Assessment & Plan: Recurrent seizures due to noncompliance with regimen. Phenytoin level was undetectable. No seizures since admission. We have resumed oral dosing. Continue to monitor drug levels. Will have social work work on placement of patient, as noncompliance has been a recurring theme with Mr. Colvin. He is obviously having a very difficult time caring for himself (or unable to do so) . (4) Cellulitis of right elbow Status: Acute Assessment & Plan: Improving. Mild erythema and less induration. He was on initially on vancomycin and ertapenem and then transitioned to Ancef. He is now on oral Keflex. (5) Adult hypothyroidism Onset Date: 08/24/2014 Status: Chronic Assessment & Plan: Due to thyroidectomy for thyroid cancer. He was initially receiving IV Synthroid and has been transitioned to oral levothyroxine. (6) Thyroid cancer Status: Chronic Exam Sepsis Risk: No Definite Risk Problem Qualifiers (1) Altered mental status: Altered mental status type: delirium Qualified Codes: R41.0 - Disorientation, unspecified DIANA MOODYP May 14, 2018 11:20
[2018-05-14 12:26] VITALS: BP 92/57
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
[2018-05-14 14:49] VITALS: BP 82/44
[2018-05-14 19:03] VITALS: BP 100/70
[2018-05-14] MEDS: ACETAMINOPHEN 325 MG TAB PO PRN (23:12)
[2018-05-14 23:17] VITALS: BP 100/59
[2018-05-15] MEDS: LEVOTHYROXINE SOD 0.125 MG TAB PO SCH (05:45)
[2018-05-15] MEDS ORDERED: DIVA500T98 PO (08:01)
[2018-05-15] MEDS ORDERED: LEV125 PO (08:01)
[2018-05-15] MEDS ORDERED: ESCI10TA8 PO (08:01)
[2018-05-15] MEDS ORDERED: RISP0.2548 PO (08:01)
[2018-05-15] MEDS ORDERED: [UNRECOGNIZED DRUG - CODE] PO (08:01)
[2018-05-15] MEDS ORDERED: CEPH500C24 PO (08:04)
[2018-05-15] MEDS: DIVALPROEX SOD DR 500 MG TAB PO SCH ×2 (09:26→14:01)
[2018-05-15] MEDS: PHENYTOIN ER 100 MG CAPER PO SCH (09:27)
[2018-05-15] MEDS: ENOXAPARIN 40 MG/0.4ML SYR SC SCH (09:27)
[2018-05-15] MEDS: CEPHALEXIN MONO 500 MG CAP PO SCH ×2 (09:27→12:42)
--- NOTE | 2018-05-15 09:56 | Hospitalist Depart ---
Discharge Summary Reason for Hosp/Final Diag: (1) Respiratory failure Hospital Course & Plan: He did develop respiratory failure secondary to sedation for aggressive behavior. He was intubated on 05/04/18 and extubated 05/06/18. He does appear to be doing well from respiratory standpoint. (2) Altered mental status Status: Acute Hospital Course & Plan: Most likely due to recurrent seizures (post-ictal state) and possibly acute infection/cellulitis right elbow. He was extremely agitated/combative/violent, which necessitated sedation and ultimately intubation/mechanical ventilation. He is doing well at this time. He has been "re-loaded" with his anticonvulsants and has not had any recurrent seizures. (3) Seizure disorder Status: Acute Hospital Course & Plan: Recurrent seizures due to noncompliance with regimen. Phenytoin level was undetectable. No seizures since admission. We have resumed oral dosing. Continue to monitor drug levels. He will be transferred to [facility], as noncompliance has been a recurring theme with Mr. Colvin. He has obviously had a very difficult time caring for himself (or unable to do so). (4) Cellulitis of right elbow Status: Acute Hospital Course & Plan: Improving. Mild erythema and less induration. He was on initially on vancomycin and ertapenem and then transitioned to Ancef. He is now on oral Keflex. (5) Adult hypothyroidism Onset Date: 08/24/2014 Status: Chronic Hospital Course & Plan: Due to thyroidectomy for thyroid cancer. He was initially receiving IV Synthroid and has been transitioned to oral levothyroxine. (6) Thyroid cancer Status: Chronic Departure Latest Vital Signs Vital Signs 05/10/18 05/11/18 05/14/18 05/15/18 05/15/18 10:11 21:20 23:17 00:04 08:24 Temp 97.7 Pulse 95 80 Resp 16 B/P (MAP) 100/59 (73) Pulse Ox 94 O2 Delivery Room Air O2 Flow Rate 2.0 FiO2 25.0 Weight (Pounds): 149 Weight (Ounces): 2.0 Result Diagram: 05/12/1852105/12/18521 Condition: Improved Discharge: [facility] RN Follow Up For: Medication Management Discharge Instructions Home Meds Active Scripts Cephalexin Monohydrate (CEPHALEXIN) 500 Mg Cap, 500 MG PO QID for 3 Days, #12 CAP 0 Refills Prov:DIANA MOODY [facility] 05/15/18 Escitalopram Oxalate (ESCITALOPRAM OXALATE) 10 Mg Tablet, 20 MG PO QDAY, #30 TAB Prov:DIANA MOODY [facility] 05/15/18 Levothyroxine Sodium (LEVOTHYROXINE SODIUM) 0.125 Mg Tab, 0.125 MG PO QDAY, #30 TAB Prov:DIANA MOODY [facility] 05/15/18 Phenytoin Sodium Extended (PHENYTOIN SODIUM EXTENDED) 300 Mg Capsule, 300 MG PO QDAY for 30 Days, #30 CAPSULE Prov:DIANA MOODY [facility] 05/15/18 Risperidone (RISPERIDONE) 0.25 Mg Tablet, 0.25 MG PO BID, #60 TAB Prov:DIANA MOODY [facility] 05/15/18 Divalproex Sodium (DEPAKOTE) 500 Mg Tablet., 1000 MG PO TID, #180 TAB 0 Refills Prov:CEDRIC CERVANTES MD 05/03/18 Discontinued Scripts Divalproex Sodium (DEPAKOTE) 500 Mg Tablet.dr, 1000 MG PO BID for 30 Days, #60 TAB 0 Refills Prov:DIANA MOODY [facility] 05/15/18 Hydrocodone Bit/Acetaminophen (HYDROCODON-ACETAMINOPHEN 5-325) 1 Each Tablet, 1- 2 TAB PO Q6H PRN for MODERATE PAIN, #30 TAB 0 Refills Prov:MAGDALENE GROVE APRN [facility] 04/16/18 Diet: Regular Activity: As Tolerated Special Instructions: Copies to: ; Venous Thromboembolism Antithrombotics Is Pt On Any Antithrombotics?: Yes Problem Qualifiers (1) Altered mental status: Altered mental status type: delirium Qualified Codes: R41.0 - Disorientation, unspecified DIANA MOODY [facility] May 15, 2018 09:56
[2018-05-15 10:56] VITALS: BP 102/58
[2018-05-15] MEDS ORDERED: PANT40TA65 PO (18:30)
[2018-05-15] MEDS ORDERED: LOR5/325 PO (18:36)
== END 2018-05-15 14:55 | DRG 100 ==
LOC: ER 21:48 → ICU 05-04 02:45 → MED 05-07 12:35
PROVIDERS: ADMIT Internal Medicine; ATTEND Internal Medicine
PROC: 5A1945Z Respiratory Ventilation, 24-96 Consecutive Hours (ICD-10-PCS; principal; 2018-05-04)
PROC: 0BH17EZ Insertion of Endotracheal Airway into Trachea, Via Natural or Artificial Opening (ICD-10-PCS; 2018-05-04)
DX: G40.509 Epileptic seizures related to external causes, not intractable, without status epilepticus (principal); J96.00 Acute respiratory failure, unspecified whether with hypoxia or hypercapnia; L03.113 Cellulitis of right upper limb; T42.4X5A Adverse effect of benzodiazepines, initial encounter; R45.6 Violent behavior; T42.6X6A Underdosing of other antiepileptic and sedative-hypnotic drugs, initial encounter; E89.0 Postprocedural hypothyroidism; D03.59 Melanoma in situ of other part of trunk; J44.9 Chronic obstructive pulmonary disease, unspecified; J84.10 Pulmonary fibrosis, unspecified; R45.4 Irritability and anger; Z23 Encounter for immunization; Y92.230 Patient room in hospital as the place of occurrence of the external cause; Z87.891 Personal history of nicotine dependence; Z91.128 Patient's intentional underdosing of medication regimen for other reason; Z85.850 Personal history of malignant neoplasm of thyroid; Z91.14 Patient's other noncompliance with medication regimen
CPT/HCPCS: 36415; 36600; 70450; 71045; 71260; 72125; 72128; 80164; 80185; 80305; 80320; 80329; 81001; 82040; 82247; 82310; 82374; 82435; 82565; 82803; 82947; 83605; 83735; 84075; 84132; 84155; 84295; 84450; 84460; 84520; 85025; 85651; 87040; 87088; 90471; 90674; 94002; 94003; 94770; 96361; 96365; 96366; 96367; 96372; 96375; 97161; 97165; 99285; A4216; A9270; C1758; J0330; J0690; J1200; J1335; J1650; J2060; J2250; J2704; J3010; J3370; J3480; J3490; J7030; J7040; J7050; Q2009; Q9967

== ENCOUNTER → 2018-05-03 | Outpatient (CLI) | payer MEDICARE, MEDICAID ==
[~2018-05-03] MED LIST changes: +CEPH500C24 PO; +ESCI10TA8 PO; -HYDR-4309 PO; +HYDR-653 PO
[2018-05-04 12:03] VITALS: BMI 24.8
== END ==
LOC: AMB 21:17
PROVIDERS: ATTEND Nurse Practitioner
DX: R41.82 Altered mental status, unspecified (principal); L08.9 Local infection of the skin and subcutaneous tissue, unspecified; M54.9 Dorsalgia, unspecified; M25.561 Pain in right knee; G40.909 Epilepsy, unspecified, not intractable, without status epilepticus
CPT/HCPCS: A0425; A0429

== ENCOUNTER → 2018-05-03 | Outpatient (CLI) | payer MEDICARE, MEDICAID ==
[2018-05-04 12:03] VITALS: BMI 24.8
== END ==
LOC: AMB 03:15
PROVIDERS: ATTEND Nurse Practitioner
DX: G40.909 Epilepsy, unspecified, not intractable, without status epilepticus (principal); R51 Headache; M54.9 Dorsalgia, unspecified
CPT/HCPCS: A0425; A0429

== ENCOUNTER 2018-05-15 14:55 | Inpatient (IN) | payer MEDICARE, MEDICAID ==
[2018-05-04 12:03] VITALS: Ht 180.3 cm; Wt 67.8 kg
[~2018-05-15] VITALS: Ht 180.3 cm; Wt 67.8 kg
[2018-05-15] MEDS ORDERED: HYPROMELLOSE 0.4% LUB 15ML BTL OU PRN (15:18)
[2018-05-15] MEDS ORDERED: ACETAMINOPHEN 160 MG/5 ML UDC FT PRN (15:18)
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
[2018-05-15 16:00] VITALS: BP 100/57
[2018-05-15] MEDS: CEPHALEXIN MONO 500 MG CAP PO SCH ×2 (17:11→20:17)
--- NOTE | 2018-05-15 18:27 | Consultant Pharmacy Review ---
Checker Stocker Review Medication Review Do All Mecications have a Diag: Yes Other General Cautions PATIENT IS 58 YEAR OLD MALE - NOT A CANDIDATE FOR BEERS EVAL. PHENYTOIN IS A STRONG INDUCER OF METABOLISM OF ESCITALOPRAM - THIS MAY REDUCE EFFICACY OF ESCITALOPRAM Pneumococcal Vaccine HX Pneumo Vac ([id number]): No HX Pneumo Vac (Pneumovax): No MD Notified? MD Notified?: No VANESSA NOEL May 15, 2018 18:27
[2018-05-15] MEDS ORDERED: PANT40TA65 PO (18:30)
[2018-05-15] MEDS ORDERED: LOR5/325 PO (18:36)
[2018-05-15] MEDS: DIVALPROEX SOD DR 500 MG TAB PO SCH (20:17)
[2018-05-15] MEDS: risperiDONE 0.25 MG TAB PO SCH (20:17)
[2018-05-16] MEDS ORDERED: ACETAMINOPHEN 325 MG TAB PO PRN (01:50)
[2018-05-16] MEDS ORDERED: ACETAMINOPHEN 160 MG/5 ML UDC PO PRN (01:50)
[2018-05-16] MEDS: LEVOTHYROXINE SOD 0.125 MG TAB PO SCH (05:43)
[2018-05-16 07:45] VITALS: BP 94/46
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
[2018-05-16] MEDS: ENOXAPARIN 40 MG/0.4ML SYR SC SCH (08:56)
[2018-05-16] MEDS: CEPHALEXIN MONO 500 MG CAP PO SCH ×4 (08:56→21:08)
[2018-05-16] MEDS: ESCITALOPRAM OXALATE 10 MG TAB PO SCH (08:56)
[2018-05-16] MEDS: PHENYTOIN ER 100 MG CAPER PO SCH (08:56)
[2018-05-16] MEDS: risperiDONE 0.25 MG TAB PO SCH ×2 (09:00→21:08)
[2018-05-16] MEDS: DIVALPROEX SOD DR 500 MG TAB PO SCH ×3 (09:10→21:07)
--- NOTE | 2018-05-16 12:57 | OT ECF NOTE ---
Type of Note: Initial Note Primary Medical Diagnosis: Recent hospital admission for AMS/Seizure disorder Occupational Therapy Evaluation Date: 05/16/18 SUBJECTIVE: Prior Hospitalization: [facility] 05/04/18 to 05/15/18 Frequent ER visits and hospital admissions (Please refer to EMR for complete details) Prior Level of Function: Independent with ADLs. Reports independence with IADLs although admittedly reports noncompliance with medication management. Prior Living Status: Apartment ([facility]) Alone Community Services: Home health shelter Accessibility: All needs on one level Walk-in shower Tub/shower combination Equipment Owned: Front wheeled walker Medical Complications/Past Medical History: Seizure disorder. Please refer to EMR for further details. Psychosocial Support: Cousin Evelyn is POA and resides in [place] Pain Scale (0-10): No report of pain at time of evaluation Hand Dominance: Right OBJECTIVE: Strength: MMT: Right Left Shoulder Flexion 5/5 5/5 Elbow Flexion 5/5 5/5 Wrist Extension 5/5 5/5 Ladle Handler 5/5 5/5 (5= normal, 4= good, 3= fair, 2= poor, 1= trace) ROM: Both upper extremities, WNL Sensation: Intact, No concerns Functional Transfer: Assistive Device: Gait belt Transfer Ability: SBA ambulation x450ft with no AD. Notable path deviation, no loss of balance. Occasional use of rail in hallway, Encouraged use of RW for stability, pt adamantly declined. ADL: Upper body dressing: Assistive device: None Upper body dressing ability: Independent Lower body dressing: Assistive device: None Lower body dressing ability: Independent Toileting: Assistive device: None Toileting ability: Independent Grooming/hygiene: Assistive device: None Grooming ability: Independent Bathing: Assistive device: Bathing ability: Not tested at initial evaluation. Pt demonstrates appropriate sequencing and strength to (I)ly complete bathing task. Standardized Assessment: Wero Index of Activities of Daily Livin/20 upon initial evaluation (05/16/18). Showering portion based of skilled OT judgement during evaluation. Mini-Mental State Examination: 22/30 indicating mild cognitive impairment. Areas if impairment include orientation to time and attention/calculation. ASSESSMENT: Timi presents to [facility] with good strength and tolerance for activity. At [facility] he was (I) with ADLs, utilized "easy" food for meals (frozen/deli) and was historically noncompliant with medication management. He is independent with all ADLs and functional mobility. Pt reporting his primary concern is "how I do my medications." Pt reports having tried a medication technical planner which has been lost, a phone/watch to set reminders which he sleeps through. Pt feels that an appropriate way to alleviate this concern is to have another person assist with medication reminders and providing medications. Due to MMSE score indicating mild cognitive impairment and history with adaptive methods for medication management being unsuccessful, it is recommended that Timi have 24/7 supervision for safety and management to IADLs. Barriers to Discharge: History of noncompliance with medications, determining an appropriate discharge setting that can assist with safety and medication compliance PLAN: No skilled OT services at this time. Please feel free to contact me if needs or concerns arise. Thank you for this referral. If you have any questions, concerns, or comments about this report or plan, please contact me at . La Gagnon MS, OTR/L Occupational Therapist NAMAN
[2018-05-16 15:35] VITALS: BP 95/51
--- NOTE | 2018-05-16 16:54 | PT ECF NOTE ---
Type of Note: Initial Note Primary Medical Diagnosis: Recent hospital admission for AMS/Seizure disorder Physical Therapy Evaluation Date: 05/16/18 SUBJECTIVE: Prior Hospitalization: [facility] 05/04/18 to 05/15/18 Frequent ER visits and hospital admissions (Please refer to EMR for complete details) Prior Level of Function: Independent with ADLs. Reports independence with IADLs although admittedly reports noncompliance with medication management. Prior Living Status: Apartment ([facility]) Alone Community Services: Home health care previously Home Accessibility: Stairs with rail to access All needs on one level Walk-in shower Tub/shower combination Equipment Owned: Front wheeled walker Medical Complications/Past Medical History: Seizure disorder. Please refer to EMR for further details. Psychosocial Support: Cousin Evelyn is POA and resides in [place] Pain Scale (0-10): No report of pain at time of evaluation OBJECTIVE: Strength: WFL although pt does fatigue quickly and demos decreased balance reaction. ROM: (please note any abnormalities) WFL Sensation: (please note any abnormalities) No paresthesias reported Other Neuro findings: Seizure disorder, well controlled when taking medications appropriately Bed Mobility: Modified Indep Assistive device: Head of bed elevated Transfers: SBA; Modified Ind/AE Assistive Device: None Gait: SBA; Modified Ind/AE Assistive device: None Stairs: Not yet addressed Assistive device: Timed Up and Go (>12 seconds indicated increased risk for falls): 18 seconds without assistive device; with verbal and visual cues to turn at appropriate distance and poor safety awareness for stand to sit at end of timed test. 10 meter walk test (0.6m/second cannot function independently): n/a Other Objective Measures: n/a ASSESSMENT: Pt demos a limited willingness to participate in basic therapy until presented with more age appropriate and functional community mobility options. Pt does express a desire to get back to using a bike for transportation upon d/c and seems more inclined to address gait trng if completed out doors on uneven surfaces, as this appears to be more applicable to pt's lifestyle. Problem List/Current Limitations: Decreased activity anjana, Decreased coordination, Ataxia, Decreased balance, Generalized weakness Poor safety awareness, Perceptual deficits, Decreased initiation Short Term Goals: 1. Pt to demo safe correction of path deviation and turns on uneven surfaces to include sidewalks and hills, with no assistive device and SBA/Modified indep 2. Pt to remain indep with all bed mobility and transfers using UE's to assist as needed. 3. Pt to tolerate up/down 11 stairs with single rail and SBA/Modified indep with VS to remain in safe range throughout. 4. Pt to participate in cardiovascular exercise x20 minutes with VS in safe range, to simulate outdoor bike riding, which pt reports is a motivating goal for his functional mobility in the community. Mcc Goals: Pt to discharge to an appropriate setting with support that will encourage improved health management and safety. Patient Goals: To get out of here Rehabilitation Prognosis: Fair Barriers for Discharge: Pt's level of awareness for safety skills and decreased general concern for his limitations. PLAN: The patient will benefit from skilled physical therapy services 5 times per week for 2 weeks including: Therapeutic Exercise Therapeutic Activities, Transfer Training, Gait Training, Stair Training, ADL's, Safety Training, Neuromuscular Re-educ., Pt/Caregiver Training Bed Mobility Thank you for this referral. If you have any questions, concerns, or comments about this report or plan, please contact me at . H. Rachael Modi, PT, MPT, OMS MTDD
[2018-05-17] MEDS: LEVOTHYROXINE SOD 0.125 MG TAB PO SCH (06:44)
[2018-05-17 07:40] VITALS: BP 95/55
[2018-05-17] MEDS: ENOXAPARIN 40 MG/0.4ML SYR SC SCH (08:57)
[2018-05-17] MEDS: PHENYTOIN ER 100 MG CAPER PO SCH (08:57)
[2018-05-17] MEDS: CEPHALEXIN MONO 500 MG CAP PO SCH ×4 (08:58→20:06)
[2018-05-17] MEDS: risperiDONE 0.25 MG TAB PO SCH ×2 (08:58→20:06)
[2018-05-17] MEDS: DIVALPROEX SOD DR 500 MG TAB PO SCH ×3 (08:58→20:05)
[2018-05-17] MEDS: ESCITALOPRAM OXALATE 10 MG TAB PO SCH (08:58)
[2018-05-17 17:15] VITALS: BP 101/62
[2018-05-18] MEDS: LEVOTHYROXINE SOD 0.125 MG TAB PO SCH (06:09)
[2018-05-18 07:35] VITALS: BP 92/55
[2018-05-18] MEDS: risperiDONE 0.25 MG TAB PO SCH ×2 (08:51→21:08)
[2018-05-18] MEDS: ENOXAPARIN 40 MG/0.4ML SYR SC SCH (08:51)
[2018-05-18] MEDS: PHENYTOIN ER 100 MG CAPER PO SCH (08:51)
[2018-05-18] MEDS: CEPHALEXIN MONO 500 MG CAP PO SCH ×4 (08:51→21:08)
[2018-05-18] MEDS: ESCITALOPRAM OXALATE 10 MG TAB PO SCH (08:51)
[2018-05-18] MEDS: DIVALPROEX SOD DR 500 MG TAB PO SCH ×3 (09:00→21:08)
[2018-05-18 16:00] VITALS: BP 107/60
[2018-05-19] MEDS: LEVOTHYROXINE SOD 0.125 MG TAB PO SCH (06:14)
[2018-05-19] MEDS: PHENYTOIN ER 100 MG CAPER PO SCH (08:58)
[2018-05-19] MEDS: DIVALPROEX SOD DR 500 MG TAB PO SCH ×3 (08:58→20:23)
[2018-05-19] MEDS: risperiDONE 0.25 MG TAB PO SCH ×2 (08:58→20:23)
[2018-05-19] MEDS: ESCITALOPRAM OXALATE 10 MG TAB PO SCH (08:58)
[2018-05-19] MEDS: ENOXAPARIN 40 MG/0.4ML SYR SC SCH (08:58)
[2018-05-19 09:08] VITALS: BP 88/58
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
[2018-05-19 15:45] VITALS: BP 103/62
[2018-05-20] MEDS: LEVOTHYROXINE SOD 0.125 MG TAB PO SCH (06:13)
[2018-05-20 08:30] VITALS: BP 86/62
[2018-05-20] MEDS: ENOXAPARIN 40 MG/0.4ML SYR SC SCH (08:57)
[2018-05-20] MEDS: DIVALPROEX SOD DR 500 MG TAB PO SCH ×3 (08:58→20:31)
[2018-05-20] MEDS: risperiDONE 0.25 MG TAB PO SCH ×2 (08:58→20:31)
[2018-05-20] MEDS: ESCITALOPRAM OXALATE 10 MG TAB PO SCH (08:58)
[2018-05-20] MEDS: PHENYTOIN ER 100 MG CAPER PO SCH (08:58)
[2018-05-20 17:10] VITALS: BP 105/69
[2018-05-21] MEDS: LEVOTHYROXINE SOD 0.125 MG TAB PO SCH (05:25)
[2018-05-21 08:30] VITALS: BP 97/63
[2018-05-21] MEDS: risperiDONE 0.25 MG TAB PO SCH (08:43)
[2018-05-21] MEDS: DIVALPROEX SOD DR 500 MG TAB PO SCH ×2 (08:43→13:50)
[2018-05-21] MEDS: PHENYTOIN ER 100 MG CAPER PO SCH (08:44)
[2018-05-21] MEDS: ENOXAPARIN 40 MG/0.4ML SYR SC SCH (08:44)
[2018-05-21] MEDS: ESCITALOPRAM OXALATE 10 MG TAB PO SCH (08:44)
--- NOTE | 2018-05-21 10:45 | Hospitalist Depart ---
Discharge Summary Reason for Hosp/Final Diag: (1) Seizure secondary to subtherapeutic anticonvulsant medication Status: Acute Hospital Course & Plan: He presented with recurrent seizures due to noncompliance with regimen. He was intubated 05/04 for patient safety, and extubated 05/06. Phenytoin level was undetectable. We have resumed oral dosing, have monitored his drug levels to achieve a steady state. He was sent to [facility] ECF unit, as noncompliance has been a recurring theme with Mr. Colvin. He has obviously had a very difficult time caring for himself (or unable to do so). He has been "re-loaded" with his anticonvulsants and has not had any recurrent seizures. He is on treatment with Depakote and Phenytoin. He will be transferred to [facility] in [place] for further care. (2) Cellulitis of right elbow Status: Acute Hospital Course & Plan: Improving. Mild erythema and less induration. He was on initially on vancomycin and ertapenem and then transitioned to Ancef. He has completed oral Keflex for a total of 10 days antibiotic treatment. (3) Adult hypothyroidism Onset Date: 08/24/2014 Status: Chronic Hospital Course & Plan: Due to thyroidectomy for thyroid cancer. He is on treatment with levothyroxine. (4) Thyroid cancer Status: Chronic Departure Latest Vital Signs Vital Signs 05/21/18 05/21/18 08:30 09:00 Temp 97.5 Pulse 74 Resp 14 B/P (MAP) 97/63 (74) Pulse Ox 95 O2 Delivery Room Air Weight (Pounds): 149 Weight (Ounces): 6.0 Result Diagram: 05/17/18 0635 Condition: Improved Discharge: [facility]dc Discharge Instructions Home Meds Active Scripts Escitalopram Oxalate (ESCITALOPRAM OXALATE) 10 Mg Tablet, 20 MG PO QDAY, #30 TAB Prov:DIANA MOODYP 05/15/18 Levothyroxine Sodium (LEVOTHYROXINE SODIUM) 0.125 Mg Tab, 0.125 MG PO QDAY, #30 TAB Prov:DIANA MOODYP 05/15/18 Phenytoin Sodium Extended (PHENYTOIN SODIUM EXTENDED) 300 Mg Capsule, 300 MG PO QDAY for 30 Days, #30 CAPSULE Prov:DIANA MOODY [facility] 05/15/18 Risperidone (RISPERIDONE) 0.25 Mg Tablet, 0.25 MG PO BID, #60 TAB Prov:DIANA MOODYP 05/15/18 Divalproex Sodium (DEPAKOTE) 500 Mg Tablet., 1000 MG PO TID, #180 TAB 0 Refills Prov:CEDRIC CERVANTES MD 05/03/18 Reported Medications Pantoprazole Sodium (PANTOPRAZOLE SODIUM) 40 Mg Tablet.dr, 40 MG PO QDAY, TAB.SR 05/15/18 Discontinued Reported Medications Hydrocodone Bit/Acetaminophen (HYDROCODON-ACETAMINOPHEN 5-325) 1 Each Tablet, 2 EACH PO Q6H, TAB 05/15/18 Discontinued Scripts Cephalexin Monohydrate (CEPHALEXIN) 500 Mg Cap, 500 MG PO QID for 3 Days, #12 CAP 0 Refills Prov:DIANA MOODYP 05/15/18 Divalproex Sodium (DEPAKOTE) 500 Mg Tablet., 1000 MG PO BID for 30 Days, #60 TAB 0 Refills Prov:DIANA MOODY 05/15/18 Hydrocodone Bit/Acetaminophen (HYDROCODON-ACETAMINOPHEN 5-325) 1 Each Tablet, 1- 2 TAB PO Q6H PRN for MODERATE PAIN, #30 TAB 0 Refills Prov:MAGDALENE GROVE APRNP-C 04/16/18 Diet: Regular Activity: As Tolerated Venous Thromboembolism Antithrombotics Is Pt On Any Antithrombotics?: No DIANA MOODY May 21, 2018 10:45
== END 2018-05-21 14:22 | DRG 101 ==
LOC: SWB 14:55
PROVIDERS: ADMIT Internal Medicine; ATTEND Internal Medicine
DX: G40.509 Epileptic seizures related to external causes, not intractable, without status epilepticus (principal); L03.113 Cellulitis of right upper limb; T42.6X6A Underdosing of other antiepileptic and sedative-hypnotic drugs, initial encounter; E89.0 Postprocedural hypothyroidism; Z91.14 Patient's other noncompliance with medication regimen; Z85.850 Personal history of malignant neoplasm of thyroid; Z91.128 Patient's intentional underdosing of medication regimen for other reason; Z87.891 Personal history of nicotine dependence; Z85.820 Personal history of malignant melanoma of skin
CPT/HCPCS: 36415; 80164; 80185; 82310; 82374; 82435; 82565; 82947; 84132; 84295; 84520; 97161; 97166; J1650